=== PATIENT | male | born 1980 | race Caucasian/White ===

== ENCOUNTER 2017-12-09 06:37 | Inpatient (IN) | payer OTHER ==
[~2017-12-09] VITALS: Ht 190.5 cm; Wt 109.3 kg
[2017-12-09] VITALS (16 sets, daily range): BP systolic 102–162; BP diastolic 56–97
[2017-12-09] MEDS ORDERED: ketorolac trometh inj. 60 MG/2 ML VIAL IM ONE (06:45)
[2017-12-09] MEDS ORDERED: orphenadrine citrate 60mg/2ml inj. IM ONE (06:45)
[2017-12-09] MEDS ORDERED: acetaminophen 325mg tablet PO ONE (06:45)
[2017-12-09] MEDS ORDERED: HYDROcodone/acetaminophen 5mg/325mg tablet PO ONE (06:45)
[2017-12-09] MEDS ORDERED: LIDOcaine 5% patch TP ONE (06:45)
[2017-12-09] MEDS ORDERED: morphine 4 MG/ML inj SYRINge IV ONE ×2 (06:55→07:40)
[2017-12-09] MEDS ORDERED: normal saline 1000ml 1,000 ML IV ONE ×2 (06:55→12:25)
[2017-12-09] MEDS ORDERED: NO HOME MEDS (07:24)
[2017-12-09] MEDS ORDERED: iohexol 350MG/ML 100ml bottle IV ONE (07:27)
[2017-12-09 07:36] LABS: BASOPHILS % (AUTO) 0.3 % (0-1); EOSINOPHILS # (AUTO) 0.3 X10'3 (0-0.9); HEMATOCRIT 41.1 % (42.0-52.0); HEMOGLOBIN 14.3 g/dl (14.0-17.9); LYMPHOCYTES # (AUTO) 1.7 X10'3 (1.1-4.8); LYMPHOCYTES % (AUTO) 17.4 % (21-51); MEAN CORPUSCULAR HGB CONC 34.8 % (33.0-36.5); MEAN CORPUSCULAR VOLUME 94.9 FL (78-98); MEAN PLATELET VOLUME 6.9 FL (7.4-10.4); MONOCYTES # (AUTO) 0.5 X10'3 (0-0.9); MONOCYTES % (AUTO) 5.4 % (2-12); NEUTROPHILS # (AUTO) 7.2 X10'3 (1.8-7.7); NEUTROPHILS % (AUTO) 73.9 % (42-75); PLATELET COUNT 339 X10'3 (140-440); RED BLOOD COUNT 4.33 X10'6 (4.70-6.10); RED CELL DISTRIBUTION WIDTH 12.7 % (11.5-14.5); WHITE BLOOD COUNT 9.7 X10'3 (4.5-11.0)
[2017-12-09] MEDS ORDERED: ondansetron/PF 4mg/2ml inj IV ONE (07:40)
[2017-12-09 07:47] LABS: PARTIAL THROMBOPLASTIN TIME 22 SECONDS (22-32); PROTHROMBIN TIME 9.9 SECONDS (9.0-12.0)
[2017-12-09 07:49] LABS: ALANINE AMINOTRANSFERASE 182 U/L (12-78); ALBUMIN 3.7 G/DL (3.4-5.0); ALKALINE PHOSPHATASE 54 IU/L (46-116); ANION GAP 13 (8-16); ASPARTATE AMINO TRANSFERASE 159 U/L (10-37); BILIRUBIN,TOTAL 0.3 MG/DL (0.1-1.0); BLOOD UREA NITROGEN 11 MG/DL (7-18); BUN/CREATININE RATIO 10.3 (5.4-32.0); CALCIUM 8.3 MG/DL (8.5-10.1); CHLORIDE 107 MMOL/L (99-107); CREATININE 1.07 MG/DL (0.60-1.10); GLUCOSE 165 MG/DL (70-104); POTASSIUM 3.7 MMOL/L (3.5-5.1); SODIUM 144 MMOL/L (135-145); TOTAL CARBON DIOXIDE 24.4 MMOL/L (24-32); TOTAL PROTEIN 7.4 G/DL (6.4-8.2); eGFR 78 ML/MIN
[2017-12-09] MEDS: folic acid inj. 2 MG, thiamine inj. 100 MG, MVI, adult No.4 with vit. K 10 ML in dextro... IV SCH ×8 (08:00→14:15)
[2017-12-09] MEDS ORDERED: HYDROmorphone 1 mg/ml syringe IV ONE ×5 (08:15→12:20)
[2017-12-09] MEDS ORDERED: LIDOcaine 1%/PF 5ML 10 MG/ML VIAL ONE (09:52)
[2017-12-09 11:53] LABS: BF WBC COUNT 35000 /CU MM (0-1000); BFAPPEAR TURBID; BFCOLOR BROWN; BFVOLUME 13 ML
[2017-12-09 11:54] LABS: BF RBC COUNT 246000 /CU MM; LYMPHOCYTES,BODY FLUID 0 %; MONOCYTES,BODY FLUID 5 %; NEUTROPHILS,BODY FLUID 95 %
[2017-12-09] MEDS ORDERED: diatrozoate meglu/diatrozoate sod (37% iodine) 120ML oral solution ONE (11:56)
[2017-12-09] MEDS ORDERED: normal saline 1000ml 1,000 ML IV SCH (11:57)
[2017-12-09] MEDS ORDERED: HYDROmorphone 1 mg/ml syringe IV PRN ×2 (12:00)
[2017-12-09] MEDS ORDERED: magnesium 4gm in 100ml NS 100 ML IV PRN ×2 (12:00→13:00)
[2017-12-09] MEDS ORDERED: haloperidol lactate 5mg/ml inj IM PRN ×2 (12:00→13:00)
[2017-12-09] MEDS ORDERED: dextrose 50%-water 50ml dispensing syringe IV PRN ×2 (12:00→13:00)
[2017-12-09] MEDS ORDERED: acetaminophen 650mg rectal suppository RC PRN (12:00)
[2017-12-09] MEDS ORDERED: potassium Cl 40MEQ/NS 500ml 500 ML IV PRN ×2 (12:00)
[2017-12-09] MEDS ORDERED: potassium Cl 20 mEq SR tablet PO PRN ×3 (12:00→13:00)
[2017-12-09] MEDS ORDERED: magnesium 1gm/100ml D5W IVPB 100 ML IV PRN ×2 (12:00→13:00)
[2017-12-09] MEDS ORDERED: ondansetron/PF 4mg/2ml inj IV PRN ×3 (12:00→17:35)
[2017-12-09] MEDS ORDERED: morphine 4 MG/ML inj SYRINge IV PRN ×4 (12:00→13:00)
[2017-12-09] MEDS ORDERED: LORazepam 2 mg/ml vial IV PRN ×2 (12:00→13:00)
[2017-12-09] MEDS ORDERED: bisacodyl 10mg suppository rectal RC PRN (12:00)
[2017-12-09] MEDS: normal saline 1000ml 1,000 ML IV SCH ×3 (12:59→23:55)
[2017-12-09] MEDS ORDERED: haloperidol 5mg tablet PO PRN (13:00)
[2017-12-09] MEDS ORDERED: magnesium Cl slow-release 64mg tablet PO PRN (13:00)
[2017-12-09] MEDS: piperacillin/tazo 4.5gm/100ml 100 ML IV SCH ×2 (13:00→17:00)
[2017-12-09] MEDS ORDERED: thiamine 100mg/ml 2ml inj. IV ONE (13:00)
[2017-12-09] MEDS ORDERED: sodium phosphate inj. 30 MMOL in dextrose 5%-water 250 ML IV PRN (13:00)
[2017-12-09] MEDS ORDERED: sodium phosphate inj. 15 MMOL in dextrose 5%-water 150 ML IV PRN (13:00)
[2017-12-09] MEDS ORDERED: acetaminophen 325mg tablet PO PRN (13:00)
[2017-12-09] MEDS ORDERED: methylene blue (5mg/ml) 50mg/10ml ampul IV ONE (14:29)
[2017-12-09] MEDS ORDERED: ceFAZolin 1000mg inj ONE (14:29)
[2017-12-09 14:31] LABS: TOTAL PROTEIN 7.9 G/DL (6.4-8.2)
[2017-12-09] MEDS ORDERED: fentaNYL /PF 50mcg/ml 5ml ampule ONE ×2 (15:25)
[2017-12-09] MEDS ORDERED: MIDAZolam 1mg/ml 10ml vial ONE (15:25)
[2017-12-09] MEDS ORDERED: sevoflurane 250ml liquid IH ONE (15:28)
[2017-12-09] MEDS: CefTRIAXone 2gm/D5W 50ml 50 ML IV SCH (16:00)
[2017-12-09] MEDS ORDERED: gentamicin 40 MG/1 ML inj ONE (16:46)
[2017-12-09] MEDS ORDERED: clindamycin phosphate 150mg/ml inj. ONE (16:46)
[2017-12-09] MEDS ORDERED: ringers solution, lacted 1,000 ML IV SCH (17:33)
[2017-12-09] MEDS ORDERED: fentaNYL/PF 50MCG/1 ML 2ML syringe IV PRN ×2 (17:35)
[2017-12-09] MEDS: K, MAG and/or Phos replacement - Verify level? MC SCH (19:51)
[2017-12-09] MEDS ORDERED: propofol inj 20 ML IV ONE (19:55)
[2017-12-09] MEDS ORDERED: rocuronium 10mg/ml inj IV ONE ×5 (19:55→19:56)
[2017-12-09] MEDS ORDERED: propofol 1000mg/100ml bottle 100 ML IV PRN (20:12)
[2017-12-09] MEDS: pantoprazole 40 MG vial IV SCH (20:13)
[2017-12-09] MEDS ORDERED: albumin (Human) 5% 250 ML IV solution IV STA (23:37)
[2017-12-09] MEDS ORDERED: albumin (Human) 5% 250ml 500 ML IV ONE (23:46)
[2017-12-10] VITALS (24 sets, daily range): BP systolic 88–131; BP diastolic 52–71
[2017-12-10] MEDS: piperacillin/tazo 4.5gm/100ml 100 ML IV SCH ×4 (01:17→23:17)
[2017-12-10] MEDS: normal saline 1000ml 1,000 ML IV SCH ×5 (02:19→23:14)
[2017-12-10] MEDS: FENTANYL-0.9 % NACL/PF 100 ML IV PRN ×2 (03:15→09:04)
[2017-12-10 03:45] LABS: BASOPHILS % (AUTO) 0.1 % (0-1); EOSINOPHILS % (AUTO) 0.3 % (0-6); HEMATOCRIT 42.5 % (42.0-52.0); HEMOGLOBIN 14.7 g/dl (14.0-17.9); LYMPHOCYTES # (AUTO) 0.7 X10'3 (1.1-4.8); LYMPHOCYTES % (AUTO) 18.2 % (21-51); MEAN CORPUSCULAR HEMOGLOBIN 33.3 PG (27.0-31.0); MEAN CORPUSCULAR HGB CONC 34.5 % (33.0-36.5); MEAN CORPUSCULAR VOLUME 96.6 FL (78-98); MEAN PLATELET VOLUME 7.7 FL (7.4-10.4); MONOCYTES # (AUTO) 0.5 X10'3 (0-0.9); MONOCYTES % (AUTO) 14.8 % (2-12); NEUTROPHILS # (AUTO) 2.4 X10'3 (1.8-7.7); NEUTROPHILS % (AUTO) 66.6 % (42-75); PLATELET COUNT 274 X10'3 (140-440); RED CELL DISTRIBUTION WIDTH 13.1 % (11.5-14.5); WHITE BLOOD COUNT 3.6 X10'3 (4.5-11.0)
[2017-12-10 03:57] LABS: INR 1.1 INR; PARTIAL THROMBOPLASTIN TIME 24 SECONDS (22-32); PROTHROMBIN TIME 10.9 SECONDS (9.0-12.0)
[2017-12-10 04:02] LABS: ANION GAP 11 (8-16); BILIRUBIN,TOTAL 1.1 MG/DL (0.1-1.0); BLOOD UREA NITROGEN 15 MG/DL (7-18); BUN/CREATININE RATIO 10.7 (5.4-32.0); CHLORIDE 108 MMOL/L (99-107); GLUCOSE 169 MG/DL (70-104); MAGNESIUM 1.4 MG/DL (1.5-2.4); PHOSPHORUS 2.3 MG/DL (2.3-4.5); POTASSIUM 4.5 MMOL/L (3.5-5.1); SODIUM 142 MMOL/L (135-145); TOTAL CARBON DIOXIDE 23.3 MMOL/L (24-32); TOTAL PROTEIN 6.1 G/DL (6.4-8.2); eGFR 57 ML/MIN
[2017-12-10 04:03] LABS: ALANINE AMINOTRANSFERASE 149 U/L (12-78); ALKALINE PHOSPHATASE 26 IU/L (46-116); AMYLASE 20 U/L (25-115); ASPARTATE AMINO TRANSFERASE 135 U/L (10-37)
[2017-12-10] MEDS ORDERED: albumin (Human) 5% 250 ML IV solution IV ONE (04:20)
[2017-12-10 05:31] LABS: ABG BASE EXCESS -5.7 mmol/L (-2.0-3.0); ABG HCO3 20.1 mmol/L (22.0-26.0); ABG OXYGEN SATURATION 97.3 % (95-98); ABG PH (T) 7.302 (7.350-7.450); ABG PO2 (T) 93.9 mmHg (83-108); FCOHb 0.5 % (0.5-1.5); FMetHb 0.3 % (0.3-1.12); FO2Hb 96.5 % (94-100); MINUTE VOLUME 10 L/min; PATIENT TEMPERATURE 37.7; PEEP 5 cm H2O; RESPIRATORY RATE 14 b/min; RESPIRATORY RATE (OBSERVED) 14 b/min; TIDAL VOLUME 700 mL; TOTAL HEMOGLOBIN 14.8 G/dl (14.0-18.0)
[2017-12-10] MEDS: CefTRIAXone 2gm/D5W 50ml 50 ML IV SCH (07:32)
[2017-12-10] MEDS: pantoprazole 40 MG vial IV SCH (07:32)
[2017-12-10] MEDS: enoxaparin 40mg/0.4ml syringe SUBCUT SCH (07:33)
[2017-12-10] MEDS: K, MAG and/or Phos replacement - Verify level? MC SCH (07:35)
[2017-12-10] MEDS: K and/or MAG REPLACEMENT MC SCH (07:35)
[2017-12-10] MEDS ORDERED: CefTRIAXone/D5W-Rocephin 1gm 50 ML IV SCH (08:00)
[2017-12-10] MEDS: folic acid inj. 2 MG, thiamine inj. 100 MG, MVI, adult No.4 with vit. K 10 ML in dextro... IV SCH ×4 (10:36)
[2017-12-10] MEDS: HYDROmorphone/NS 1 mg/ml CADD 50 ML IV SCH ×7 (12:50→23:00)
[2017-12-10] MEDS: lactobacillus rhamnosus 10,000 MMU CELLS/CAPSULE PO SCH (20:20)
[2017-12-11] VITALS (23 sets, daily range): BP systolic 92–143; BP diastolic 61–77
[2017-12-11] MEDS: HYDROmorphone/NS 1 mg/ml CADD 50 ML IV SCH ×12 (01:00→23:00)
[2017-12-11 04:25] LABS: BASOPHILS % (AUTO) 0.2 % (0-1); EOSINOPHILS % (AUTO) 0.1 % (0-6); HEMATOCRIT 39.4 % (42.0-52.0); HEMOGLOBIN 13.1 g/dl (14.0-17.9); LYMPHOCYTES # (AUTO) 0.9 X10'3 (1.1-4.8); LYMPHOCYTES % (AUTO) 11.4 % (21-51); MEAN CORPUSCULAR HEMOGLOBIN 32.5 PG (27.0-31.0); MEAN CORPUSCULAR HGB CONC 33.3 % (33.0-36.5); MEAN CORPUSCULAR VOLUME 97.5 FL (78-98); MEAN PLATELET VOLUME 7.9 FL (7.4-10.4); MONOCYTES # (AUTO) 0.7 X10'3 (0-0.9); MONOCYTES % (AUTO) 9.5 % (2-12); NEUTROPHILS # (AUTO) 6.3 X10'3 (1.8-7.7); NEUTROPHILS % (AUTO) 78.8 % (42-75); PLATELET COUNT 228 X10'3 (140-440); RED BLOOD COUNT 4.04 X10'6 (4.70-6.10); RED CELL DISTRIBUTION WIDTH 12.6 % (11.5-14.5); WHITE BLOOD COUNT 7.9 X10'3 (4.5-11.0)
[2017-12-11 04:26] LABS: PARTIAL THROMBOPLASTIN TIME 33 SECONDS (22-32)
[2017-12-11 04:28] LABS: ALANINE AMINOTRANSFERASE 108 U/L (12-78); ALBUMIN 2.6 G/DL (3.4-5.0); ALBUMIN/GLOBULIN RATIO 0.7 (1.1-1.5); ALKALINE PHOSPHATASE 46 IU/L (46-116); AMYLASE 11 U/L (25-115); ANION GAP 6 (8-16); ASPARTATE AMINO TRANSFERASE 73 U/L (10-37); BILIRUBIN,TOTAL 0.7 MG/DL (0.1-1.0); BLOOD UREA NITROGEN 14 MG/DL (7-18); BUN/CREATININE RATIO 13.7 (5.4-32.0); CALCIUM 8.3 MG/DL (8.5-10.1); CHLORIDE 105 MMOL/L (99-107); CREATININE 1.02 MG/DL (0.60-1.10); GLUCOSE 112 MG/DL (70-104); MAGNESIUM 1.7 MG/DL (1.5-2.4); PHOSPHORUS 2.3 MG/DL (2.3-4.5); POTASSIUM 4.1 MMOL/L (3.5-5.1); SODIUM 140 MMOL/L (135-145); TOTAL CARBON DIOXIDE 29.2 MMOL/L (24-32); TOTAL PROTEIN 6.4 G/DL (6.4-8.2); eGFR 83 ML/MIN
[2017-12-11 06:14] LABS: PLATELET ESTIMATE NORMAL; TOTAL CELLS COUNTED 100
[2017-12-11] MEDS: lactobacillus rhamnosus 10,000 MMU CELLS/CAPSULE PO SCH (07:01)
[2017-12-11] MEDS: K and/or MAG REPLACEMENT MC SCH (07:10)
[2017-12-11] MEDS: K, MAG and/or Phos replacement - Verify level? MC SCH (07:11)
[2017-12-11] MEDS: pantoprazole 40 MG vial IV SCH (07:27)
[2017-12-11] MEDS: CefTRIAXone 2gm/D5W 50ml 50 ML IV SCH (07:27)
[2017-12-11] MEDS: enoxaparin 40mg/0.4ml syringe SUBCUT SCH (07:27)
[2017-12-11] MEDS: piperacillin/tazo 4.5gm/100ml 100 ML IV SCH ×3 (08:16→23:51)
[2017-12-11] MEDS: folic acid inj. 2 MG, thiamine inj. 100 MG, MVI, adult No.4 with vit. K 10 ML in dextro... IV SCH ×4 (08:16)
[2017-12-11] MEDS: normal saline 1000ml 1,000 ML IV SCH (16:41)
[2017-12-11] MEDS ORDERED: vancomycin/NS 1 GM ADD-VANTAGE 250 ML IV ONE (17:55)
[2017-12-12] VITALS (24 sets, daily range): BP systolic 110–154; BP diastolic 69–89
[2017-12-12] MEDS: HYDROmorphone/NS 1 mg/ml CADD 50 ML IV SCH ×12 (01:00→23:00)
[2017-12-12 06:05] LABS: ABG BASE EXCESS -7.2 mmol/L (-2.0-3.0); ABG HCO3 20.4 mmol/L (22.0-26.0); ABG OXYGEN SATURATION 96.5 % (95-98); ABG PH (T) 7.239 (7.350-7.450); ABG PO2 (T) 89.5 mmHg (83-108); FCOHb 0.8 % (0.5-1.5); FMetHb 0.3 % (0.3-1.12); FO2Hb 95.4 % (94-100); MINUTE VOLUME 10 L/min; PATIENT TEMPERATURE 37.3; PEEP 5 cm H2O; RESPIRATORY RATE 12 b/min; RESPIRATORY RATE (OBSERVED) 17 b/min; TIDAL VOLUME 700 mL
[2017-12-12 06:15] LABS: BASOPHILS % (AUTO) 0.1 % (0-1); EOSINOPHILS % (AUTO) 0.4 % (0-6); HEMATOCRIT 35.7 % (42.0-52.0); HEMOGLOBIN 12.7 g/dl (14.0-17.9); LYMPHOCYTES # (AUTO) 0.7 X10'3 (1.1-4.8); LYMPHOCYTES % (AUTO) 6.6 % (21-51); MEAN CORPUSCULAR HEMOGLOBIN 33.8 PG (27.0-31.0); MEAN CORPUSCULAR HGB CONC 35.6 % (33.0-36.5); MEAN PLATELET VOLUME 7.8 FL (7.4-10.4); MONOCYTES # (AUTO) 1.1 X10'3 (0-0.9); MONOCYTES % (AUTO) 9.9 % (2-12); NEUTROPHILS # (AUTO) 9.5 X10'3 (1.8-7.7); PLATELET COUNT 210 X10'3 (140-440); RED BLOOD COUNT 3.76 X10'6 (4.70-6.10); RED CELL DISTRIBUTION WIDTH 12.2 % (11.5-14.5); WHITE BLOOD COUNT 11.3 X10'3 (4.5-11.0)
[2017-12-12 06:22] LABS: INR 0.9 INR; PARTIAL THROMBOPLASTIN TIME 33 SECONDS (22-32); PROTHROMBIN TIME 9.1 SECONDS (9.0-12.0)
[2017-12-12 06:31] LABS: ALANINE AMINOTRANSFERASE 83 U/L (12-78); ALBUMIN/GLOBULIN RATIO 0.5 (1.1-1.5); ALKALINE PHOSPHATASE 56 IU/L (46-116); AMYLASE 12 U/L (25-115); ANION GAP 5 (8-16); ASPARTATE AMINO TRANSFERASE 59 U/L (10-37); BILIRUBIN,TOTAL 0.5 MG/DL (0.1-1.0); BLOOD UREA NITROGEN 9 MG/DL (7-18); BUN/CREATININE RATIO 10.8 (5.4-32.0); CALCIUM 8.2 MG/DL (8.5-10.1); CHLORIDE 101 MMOL/L (99-107); CREATININE 0.83 MG/DL (0.60-1.10); GLUCOSE 119 MG/DL (70-104); PHOSPHORUS 1.6 MG/DL (2.3-4.5); POTASSIUM 3.7 MMOL/L (3.5-5.1); PREALBUMIN 9.8 MG/DL (19-36); SODIUM 138 MMOL/L (135-145); TOTAL CARBON DIOXIDE 31.9 MMOL/L (24-32); TOTAL PROTEIN 5.8 G/DL (6.4-8.2); eGFR > 90 ML/MIN
[2017-12-12] MEDS: normal saline 1000ml 1,000 ML IV SCH (07:07)
[2017-12-12 07:08] LABS: TOTAL CELLS COUNTED 100
[2017-12-12] MEDS: K, MAG and/or Phos replacement - Verify level? MC SCH (07:08)
[2017-12-12] MEDS: K and/or MAG REPLACEMENT MC SCH (07:08)
[2017-12-12 07:09] LABS: PLATELET ESTIMATE NORMAL
[2017-12-12] MEDS: piperacillin/tazo 4.5gm/100ml 100 ML IV SCH ×2 (07:18→16:58)
[2017-12-12] MEDS: pantoprazole 40 MG vial IV SCH (07:26)
[2017-12-12] MEDS: enoxaparin 40mg/0.4ml syringe SUBCUT SCH (07:27)
[2017-12-12] MEDS: folic acid inj. 2 MG, thiamine inj. 100 MG, MVI, adult No.4 with vit. K 10 ML in dextro... IV SCH ×4 (07:45)
[2017-12-12] MEDS: CefTRIAXone 2gm/D5W 50ml 50 ML IV SCH (08:11)
[2017-12-12] MEDS ORDERED: ipratropium/albuterol 3ml nebule ONE (08:47)
[2017-12-12] MEDS ORDERED: ipratropium/albuterol 3ml nebule NEB ONE (08:55)
[2017-12-12] MEDS ORDERED: sodium phosphate inj. 30 MMOL in dextrose 5%-water 250 ML IV PRN (10:55)
[2017-12-12] MEDS ORDERED: sodium phosphate inj. 15 MMOL in dextrose 5%-water 150 ML IV PRN (10:55)
[2017-12-12] MEDS: metoclopramide 5 mg/ml inj IV SCH ×2 (13:42→19:44)
[2017-12-12] MEDS ORDERED: furosemide 20 MG/2 ML vial IV ONE (13:50)
[2017-12-12] MEDS ORDERED: iohexol 300mg/ml 100ml inj. ONE (15:10)
[2017-12-12] MEDS ORDERED: VANCOMYCIN LEVEL IV ONE (16:30)
[2017-12-12] MEDS ORDERED: ipratropium/albuterol 3ml nebule NEB PRN (16:40)
[2017-12-12] MEDS: furosemide 20 MG/2 ML vial IV SCH (19:44)
[2017-12-13] VITALS (22 sets, daily range): BP systolic 108–139; BP diastolic 72–89
[2017-12-13] MEDS: piperacillin/tazo 4.5gm/100ml 100 ML IV SCH ×3 (00:12→16:43)
[2017-12-13] MEDS: HYDROmorphone/NS 1 mg/ml CADD 50 ML IV SCH ×12 (00:16→21:00)
[2017-12-13] MEDS: metoclopramide 5 mg/ml inj IV SCH ×4 (02:20→20:42)
[2017-12-13 06:14] LABS: ALANINE AMINOTRANSFERASE 91 U/L (12-78); ALBUMIN/GLOBULIN RATIO 0.5 (1.1-1.5); ALKALINE PHOSPHATASE 81 IU/L (46-116); ANION GAP 3 (8-16); ASPARTATE AMINO TRANSFERASE 71 U/L (10-37); BASOPHILS % (AUTO) 0.2 % (0-1); BILIRUBIN,TOTAL 0.7 MG/DL (0.1-1.0); BLOOD UREA NITROGEN 11 MG/DL (7-18); BUN/CREATININE RATIO 12.1 (5.4-32.0); CALCIUM 8.3 MG/DL (8.5-10.1); CHLORIDE 100 MMOL/L (99-107); CREATININE 0.91 MG/DL (0.60-1.10); EOSINOPHILS # (AUTO) 0.2 X10'3 (0-0.9); EOSINOPHILS % (AUTO) 1.3 % (0-6); GLUCOSE 106 MG/DL (70-104); HEMATOCRIT 36.5 % (42.0-52.0); HEMOGLOBIN 12.8 g/dl (14.0-17.9); LYMPHOCYTES % (AUTO) 6.9 % (21-51); MAGNESIUM 1.9 MG/DL (1.5-2.4); MEAN CORPUSCULAR HEMOGLOBIN 33.3 PG (27.0-31.0); MEAN CORPUSCULAR HGB CONC 35.1 % (33.0-36.5); MEAN CORPUSCULAR VOLUME 94.7 FL (78-98); MEAN PLATELET VOLUME 7.4 FL (7.4-10.4); MONOCYTES # (AUTO) 1.9 X10'3 (0-0.9); MONOCYTES % (AUTO) 12.7 % (2-12); NEUTROPHILS # (AUTO) 11.9 X10'3 (1.8-7.7); NEUTROPHILS % (AUTO) 78.9 % (42-75); PLATELET COUNT 241 X10'3 (140-440); RED BLOOD COUNT 3.85 X10'6 (4.70-6.10); RED CELL DISTRIBUTION WIDTH 12.9 % (11.5-14.5); SODIUM 136 MMOL/L (135-145); TOTAL CARBON DIOXIDE 33.1 MMOL/L (24-32); TOTAL PROTEIN 6.2 G/DL (6.4-8.2); eGFR > 90 ML/MIN
[2017-12-13 06:21] LABS: INR 0.9 INR; PARTIAL THROMBOPLASTIN TIME 29 SECONDS (22-32); PROTHROMBIN TIME 9.3 SECONDS (9.0-12.0)
[2017-12-13 06:53] LABS: PLATELET ESTIMATE NORMAL; TOTAL CELLS COUNTED 100
[2017-12-13 07:15] LABS: POTASSIUM 2.9 MMOL/L (3.5-5.1)
[2017-12-13] MEDS: K, MAG and/or Phos replacement - Verify level? MC SCH (08:00)
[2017-12-13] MEDS: furosemide 20 MG/2 ML vial IV SCH ×2 (08:13→20:42)
[2017-12-13] MEDS: enoxaparin 40mg/0.4ml syringe SUBCUT SCH (08:13)
[2017-12-13] MEDS: pantoprazole 40 MG vial IV SCH (08:13)
[2017-12-13] MEDS: folic acid inj. 2 MG, thiamine inj. 100 MG, MVI, adult No.4 with vit. K 10 ML in dextro... IV SCH ×4 (08:14)
[2017-12-13] MEDS: potassium Cl 20 mEq SR tablet PO PRN ×3 (08:14→17:33)
[2017-12-13] MEDS: Neutra Phos packet PO PRN ×3 (08:14→17:33)
[2017-12-13] MEDS: vancomycin inj 1,250 MG in normal saline 250ml IV soln 250 ML IV SCH ×3 (10:03→20:42)
[2017-12-13] MEDS: lactobacillus rhamnosus 10,000 MMU CELLS/CAPSULE PO SCH (20:42)
[2017-12-13] MEDS: potassium Cl oral solution 20 MEQ/15 ML PO PRN (21:01)
[2017-12-14] VITALS (24 sets, daily range): BP systolic 113–151; BP diastolic 75–94
[2017-12-14] MEDS: piperacillin/tazo 4.5gm/100ml 100 ML IV SCH ×3 (00:22→15:06)
[2017-12-14] MEDS: normal saline 1000ml 1,000 ML IV SCH (00:29)
[2017-12-14] MEDS: HYDROmorphone/NS 1 mg/ml CADD 50 ML IV SCH ×12 (01:00→23:45)
[2017-12-14] MEDS ORDERED: VANCOMYCIN LEVEL IV ONE (01:30)
[2017-12-14] MEDS: metoclopramide 5 mg/ml inj IV SCH ×4 (01:30→20:02)
[2017-12-14] MEDS: potassium Cl oral solution 20 MEQ/15 ML PO PRN (01:30)
[2017-12-14] MEDS: vancomycin inj 1,250 MG in normal saline 250ml IV soln 250 ML IV SCH ×4 (01:34→20:02)
[2017-12-14 01:50] LABS: INR 0.9 INR; PARTIAL THROMBOPLASTIN TIME 27 SECONDS (22-32); PROTHROMBIN TIME 9.5 SECONDS (9.0-12.0)
[2017-12-14 01:54] LABS: ALANINE AMINOTRANSFERASE 111 U/L (12-78); ALBUMIN/GLOBULIN RATIO 0.4 (1.1-1.5); ALKALINE PHOSPHATASE 94 IU/L (46-116); ANION GAP 7 (8-16); ASPARTATE AMINO TRANSFERASE 93 U/L (10-37); BILIRUBIN,TOTAL 0.9 MG/DL (0.1-1.0); BLOOD UREA NITROGEN 13 MG/DL (7-18); BUN/CREATININE RATIO 13.7 (5.4-32.0); CALCIUM 8.5 MG/DL (8.5-10.1); CHLORIDE 99 MMOL/L (99-107); CREATININE 0.95 MG/DL (0.60-1.10); GLUCOSE 129 MG/DL (70-104); POTASSIUM 3.3 MMOL/L (3.5-5.1); SODIUM 137 MMOL/L (135-145); TOTAL CARBON DIOXIDE 30.8 MMOL/L (24-32); TOTAL PROTEIN 6.7 G/DL (6.4-8.2); eGFR 90 ML/MIN
[2017-12-14 01:55] LABS: MAGNESIUM 1.8 MG/DL (1.5-2.4); PHOSPHORUS 2.7 MG/DL (2.3-4.5); VANCOMYCIN,TROUGH 17.3 UG/ML (6.0-14.0)
[2017-12-14 02:14] LABS: BASOPHILS % (AUTO) 0 % (0-1); EOSINOPHILS # (AUTO) 0.2 X10'3 (0-0.9); EOSINOPHILS % (AUTO) 1.4 % (0-6); HEMATOCRIT 40.4 % (42.0-52.0); HEMOGLOBIN 13.9 g/dl (14.0-17.9); LYMPHOCYTES % (AUTO) 7.6 % (21-51); MEAN CORPUSCULAR HEMOGLOBIN 32.7 PG (27.0-31.0); MEAN CORPUSCULAR HGB CONC 34.5 % (33.0-36.5); MEAN CORPUSCULAR VOLUME 94.8 FL (78-98); MEAN PLATELET VOLUME 7.4 FL (7.4-10.4); MONOCYTES % (AUTO) 14.9 % (2-12); NEUTROPHILS # (AUTO) 10.2 X10'3 (1.8-7.7); NEUTROPHILS % (AUTO) 76.1 % (42-75); PLATELET COUNT 290 X10'3 (140-440); RED BLOOD COUNT 4.26 X10'6 (4.70-6.10); RED CELL DISTRIBUTION WIDTH 13.2 % (11.5-14.5); WHITE BLOOD COUNT 13.3 X10'3 (4.5-11.0)
[2017-12-14] MEDS: folic acid inj. 2 MG, thiamine inj. 100 MG, MVI, adult No.4 with vit. K 10 ML in dextro... IV SCH ×4 (07:51)
[2017-12-14] MEDS: lactobacillus rhamnosus 10,000 MMU CELLS/CAPSULE PO SCH ×2 (07:51→20:02)
[2017-12-14] MEDS: furosemide 40mg/4ml inj IV SCH ×2 (07:51→20:02)
[2017-12-14] MEDS: enoxaparin 40mg/0.4ml syringe SUBCUT SCH (07:52)
[2017-12-14] MEDS: pantoprazole 40 MG vial IV SCH (07:52)
[2017-12-14] MEDS: K, MAG and/or Phos replacement - Verify level? MC SCH (07:53)
[2017-12-14] MEDS ORDERED: diatrozoate meglu/diatrozoate sod (37% iodine) 120ML oral solution ONE (08:43)
[2017-12-15] VITALS (24 sets, daily range): BP systolic 116–147; BP diastolic 73–96
[2017-12-15] MEDS: piperacillin/tazo 4.5gm/100ml 100 ML IV SCH ×2 (00:46→08:04)
[2017-12-15] MEDS: HYDROmorphone/NS 1 mg/ml CADD 50 ML IV SCH ×12 (01:00→23:00)
[2017-12-15] MEDS: vancomycin inj 1,250 MG in normal saline 250ml IV soln 250 ML IV SCH ×4 (02:00→20:47)
[2017-12-15] MEDS: metoclopramide 5 mg/ml inj IV SCH ×2 (02:00→08:02)
[2017-12-15 05:31] LABS: BASOPHILS % (AUTO) 0 % (0-1); EOSINOPHILS # (AUTO) 0.5 X10'3 (0-0.9); EOSINOPHILS % (AUTO) 2.6 % (0-6); HEMATOCRIT 37.1 % (42.0-52.0); LYMPHOCYTES # (AUTO) 1.5 X10'3 (1.1-4.8); LYMPHOCYTES % (AUTO) 7.6 % (21-51); MEAN CORPUSCULAR HEMOGLOBIN 32.8 PG (27.0-31.0); MEAN CORPUSCULAR HGB CONC 35.1 % (33.0-36.5); MEAN CORPUSCULAR VOLUME 93.3 FL (78-98); MEAN PLATELET VOLUME 7.5 FL (7.4-10.4); MONOCYTES # (AUTO) 2.6 X10'3 (0-0.9); MONOCYTES % (AUTO) 13.2 % (2-12); NEUTROPHILS % (AUTO) 76.6 % (42-75); PLATELET COUNT 359 X10'3 (140-440); RED BLOOD COUNT 3.98 X10'6 (4.70-6.10); RED CELL DISTRIBUTION WIDTH 13.3 % (11.5-14.5); WHITE BLOOD COUNT 19.6 X10'3 (4.5-11.0)
[2017-12-15 05:47] LABS: PARTIAL THROMBOPLASTIN TIME 27 SECONDS (22-32)
[2017-12-15 06:04] LABS: ALANINE AMINOTRANSFERASE 84 U/L (12-78); ALBUMIN 1.9 G/DL (3.4-5.0); ALBUMIN/GLOBULIN RATIO 0.4 (1.1-1.5); ALKALINE PHOSPHATASE 85 IU/L (46-116); ANION GAP 9 (8-16); ASPARTATE AMINO TRANSFERASE 34 U/L (10-37); BILIRUBIN,TOTAL 0.6 MG/DL (0.1-1.0); BLOOD UREA NITROGEN 13 MG/DL (7-18); BUN/CREATININE RATIO 14.1 (5.4-32.0); CALCIUM 8.4 MG/DL (8.5-10.1); CHLORIDE 96 MMOL/L (99-107); CREATININE 0.92 MG/DL (0.60-1.10); GLUCOSE 96 MG/DL (70-104); MAGNESIUM 1.8 MG/DL (1.5-2.4); PHOSPHORUS 4.6 MG/DL (2.3-4.5); PREALBUMIN 6.8 MG/DL (19-36); SODIUM 135 MMOL/L (135-145); TOTAL CARBON DIOXIDE 30.1 MMOL/L (24-32); TOTAL PROTEIN 6.6 G/DL (6.4-8.2); eGFR > 90 ML/MIN
[2017-12-15 06:38] LABS: BANDS% (MANUAL) 5 % (0-10); EOSINOPHILS % (MANUAL) 3 % (0-6); LYMPHOCYTES % (MANUAL) 7 % (21-51); MONOCYTES % (MANUAL) 12 % (2-12); NEUTROPHILS % (MANUAL) 73 % (42-75); TOTAL CELLS COUNTED 100
[2017-12-15 06:39] LABS: PLATELET ESTIMATE NORMAL
[2017-12-15] MEDS: K, MAG and/or Phos replacement - Verify level? MC SCH (08:00)
[2017-12-15] MEDS ORDERED: enoxaparin 40mg/0.4ml syringe SUBCUT SCH (08:00)
[2017-12-15] MEDS: pantoprazole 40 MG vial IV SCH (08:01)
[2017-12-15] MEDS: furosemide 40mg/4ml inj IV SCH ×2 (08:02→20:47)
[2017-12-15] MEDS: lactobacillus rhamnosus 10,000 MMU CELLS/CAPSULE PO SCH ×2 (08:03→20:46)
[2017-12-15] MEDS: enoxaparin 40mg/0.4ml syringe SUBCUT SCH (08:03)
[2017-12-15] MEDS: folic acid inj. 2 MG, thiamine inj. 100 MG, MVI, adult No.4 with vit. K 10 ML in dextro... IV SCH ×4 (08:04)
[2017-12-15] MEDS: potassium Cl oral solution 20 MEQ/15 ML PO PRN ×3 (08:58→20:46)
[2017-12-15] MEDS: piperacillin/tazo 3.375gm/50ml 50 ML IV SCH (16:57)
[2017-12-15] MEDS: normal saline 1000ml 1,000 ML IV SCH (23:28)
[2017-12-16] VITALS (24 sets, daily range): BP systolic 118–151; BP diastolic 63–95
[2017-12-16] MEDS: CADD PCA waste documentation MC SCH
[2017-12-16] MEDS: piperacillin/tazo 3.375gm/50ml 50 ML IV SCH ×4 (00:07→20:25)
[2017-12-16] MEDS: HYDROmorphone/NS 1 mg/ml CADD 50 ML IV SCH ×12 (01:00→23:00)
[2017-12-16] MEDS: potassium Cl oral solution 20 MEQ/15 ML PO PRN ×2 (02:07→08:12)
[2017-12-16] MEDS: vancomycin inj 1,250 MG in normal saline 250ml IV soln 250 ML IV SCH ×3 (02:07→14:14)
[2017-12-16 05:56] LABS: BASOPHILS % (AUTO) 0 % (0-1); EOSINOPHILS # (AUTO) 0.7 X10'3 (0-0.9); EOSINOPHILS % (AUTO) 3.2 % (0-6); HEMATOCRIT 36.5 % (42.0-52.0); HEMOGLOBIN 12.6 g/dl (14.0-17.9); LYMPHOCYTES # (AUTO) 1.5 X10'3 (1.1-4.8); LYMPHOCYTES % (AUTO) 6.9 % (21-51); MEAN CORPUSCULAR HEMOGLOBIN 32.5 PG (27.0-31.0); MEAN CORPUSCULAR HGB CONC 34.5 % (33.0-36.5); MEAN CORPUSCULAR VOLUME 94.1 FL (78-98); MEAN PLATELET VOLUME 7.5 FL (7.4-10.4); MONOCYTES # (AUTO) 2.2 X10'3 (0-0.9); MONOCYTES % (AUTO) 9.9 % (2-12); NEUTROPHILS # (AUTO) 17.4 X10'3 (1.8-7.7); PLATELET COUNT 411 X10'3 (140-440); RED BLOOD COUNT 3.88 X10'6 (4.70-6.10); RED CELL DISTRIBUTION WIDTH 13.2 % (11.5-14.5); WHITE BLOOD COUNT 21.7 X10'3 (4.5-11.0)
[2017-12-16 06:05] LABS: PARTIAL THROMBOPLASTIN TIME 27 SECONDS (22-32); PROTHROMBIN TIME 9.9 SECONDS (9.0-12.0)
[2017-12-16 06:11] LABS: ALANINE AMINOTRANSFERASE 67 U/L (12-78); ALBUMIN 1.8 G/DL (3.4-5.0); ALBUMIN/GLOBULIN RATIO 0.4 (1.1-1.5); ALKALINE PHOSPHATASE 93 IU/L (46-116); ANION GAP 6 (8-16); ASPARTATE AMINO TRANSFERASE 38 U/L (10-37); BILIRUBIN,TOTAL 0.6 MG/DL (0.1-1.0); BLOOD UREA NITROGEN 11 MG/DL (7-18); BUN/CREATININE RATIO 12.1 (5.4-32.0); CALCIUM 8.5 MG/DL (8.5-10.1); CHLORIDE 97 MMOL/L (99-107); CREATININE 0.91 MG/DL (0.60-1.10); GLUCOSE 101 MG/DL (70-104); MAGNESIUM 2.2 MG/DL (1.5-2.4); PHOSPHORUS 3.9 MG/DL (2.3-4.5); POTASSIUM 3.6 MMOL/L (3.5-5.1); SODIUM 136 MMOL/L (135-145); TOTAL PROTEIN 6.7 G/DL (6.4-8.2); eGFR > 90 ML/MIN
[2017-12-16] MEDS: K, MAG and/or Phos replacement - Verify level? MC SCH (07:56)
[2017-12-16] MEDS: furosemide 40mg/4ml inj IV SCH (08:00)
[2017-12-16] MEDS: folic acid inj. 2 MG, thiamine inj. 100 MG, MVI, adult No.4 with vit. K 10 ML in dextro... IV SCH ×4 (08:12)
[2017-12-16] MEDS: pantoprazole 40 MG vial IV SCH (08:12)
[2017-12-16] MEDS: enoxaparin 40mg/0.4ml syringe SUBCUT SCH (08:13)
[2017-12-16] MEDS: lactobacillus rhamnosus 10,000 MMU CELLS/CAPSULE PO SCH ×2 (08:13→20:26)
[2017-12-16 09:22] LABS: BANDS% (MANUAL) 2 % (0-10); LYMPHOCYTES % (MANUAL) 6 % (21-51); MONOCYTES % (MANUAL) 8 % (2-12); NEUTROPHILS % (MANUAL) 83 % (42-75); TOTAL CELLS COUNTED 100
[2017-12-16 09:23] LABS: NUCLEATED RED BLOOD CELLS 1 /100WBC (0-0); PLATELET ESTIMATE NORMAL; REACTIVE LYMPHOCYTES % 1 % (0-0)
[2017-12-16] MEDS: diatr meglu/diatrizoate 30ml oral sol.-(3 dose) bottle PO SCH ×3 (09:33→15:17)
[2017-12-16] MEDS ORDERED: iohexol 300mg/ml 100ml inj. ONE (15:33)
[2017-12-16] MEDS: fluconazole 100mg tablet PO SCH (20:26)
[2017-12-16] MEDS: linezolid 600mg tablet PO SCH (20:26)
[2017-12-17] VITALS (28 sets, daily range): BP systolic 99–153; BP diastolic 58–89
[2017-12-17] MEDS: HYDROmorphone/NS 1 mg/ml CADD 50 ML IV SCH ×13 (01:00→23:00)
[2017-12-17] MEDS: piperacillin/tazo 3.375gm/50ml 50 ML IV SCH ×4 (02:17→20:09)
[2017-12-17] MEDS ORDERED: bisacodyl 10mg suppository rectal RC PRN (04:54)
[2017-12-17 06:37] LABS: PARTIAL THROMBOPLASTIN TIME 27 SECONDS (22-32)
[2017-12-17] MEDS: pantoprazole 40 MG vial IV SCH (07:48)
[2017-12-17] MEDS: lactobacillus rhamnosus 10,000 MMU CELLS/CAPSULE PO SCH ×2 (07:49→20:08)
[2017-12-17] MEDS: enoxaparin 40mg/0.4ml syringe SUBCUT SCH (07:49)
[2017-12-17] MEDS: linezolid 600mg tablet PO SCH ×2 (07:49→20:09)
[2017-12-17] MEDS: K, MAG and/or Phos replacement - Verify level? MC SCH (08:00)
[2017-12-17] MEDS: folic acid inj. 2 MG, thiamine inj. 100 MG, MVI, adult No.4 with vit. K 10 ML in dextro... IV SCH ×4 (08:08)
[2017-12-17] MEDS: fluconazole 100mg tablet PO SCH (08:55)
[2017-12-17] MEDS ORDERED: LIDOcaine 1%/PF 5ML 10 MG/ML VIAL ONE ×2 (10:38→11:24)
[2017-12-17] MEDS ORDERED: tPA-cathflo 2 MG/2 ml IV flush ONE (11:20)
[2017-12-17] MEDS ORDERED: tPA-cathflo 2 MG/2 ml IV flush IVF ONE (11:35)
[2017-12-17 12:49] LABS: TOTAL PROTEIN,BODY FLUID 4.6 G/DL
[2017-12-17] MEDS: ketorolac trometh. 30mg/ml inj. IV SCH (20:10)
[2017-12-18] VITALS (24 sets, daily range): BP systolic 102–144; BP diastolic 63–107
[2017-12-18] MEDS: normal saline 1000ml 1,000 ML IV SCH (00:29)
[2017-12-18] MEDS: HYDROmorphone/NS 1 mg/ml CADD 50 ML IV SCH ×10 (01:00→23:00)
[2017-12-18] MEDS: piperacillin/tazo 3.375gm/50ml 50 ML IV SCH ×4 (01:28→19:12)
[2017-12-18] MEDS: ketorolac trometh. 30mg/ml inj. IV SCH ×3 (01:29→14:02)
[2017-12-18 05:59] LABS: BASOPHILS % (AUTO) 0 % (0-1); EOSINOPHILS # (AUTO) 0.8 X10'3 (0-0.9); EOSINOPHILS % (AUTO) 3.4 % (0-6); HEMATOCRIT 34.8 % (42.0-52.0); HEMOGLOBIN 12.1 g/dl (14.0-17.9); LYMPHOCYTES # (AUTO) 1.4 X10'3 (1.1-4.8); LYMPHOCYTES % (AUTO) 6.3 % (21-51); MEAN CORPUSCULAR HGB CONC 34.9 % (33.0-36.5); MEAN CORPUSCULAR VOLUME 94.4 FL (78-98); MEAN PLATELET VOLUME 7.5 FL (7.4-10.4); MONOCYTES # (AUTO) 1.8 X10'3 (0-0.9); MONOCYTES % (AUTO) 7.9 % (2-12); NEUTROPHILS # (AUTO) 18.4 X10'3 (1.8-7.7); NEUTROPHILS % (AUTO) 82.4 % (42-75); PLATELET COUNT 492 X10'3 (140-440); RED BLOOD COUNT 3.68 X10'6 (4.70-6.10); WHITE BLOOD COUNT 22.4 X10'3 (4.5-11.0)
[2017-12-18 06:09] LABS: PARTIAL THROMBOPLASTIN TIME 28 SECONDS (22-32); PROTHROMBIN TIME 10.6 SECONDS (9.0-12.0)
[2017-12-18 06:36] LABS: ALANINE AMINOTRANSFERASE 39 U/L (12-78); ALBUMIN 1.7 G/DL (3.4-5.0); ALBUMIN/GLOBULIN RATIO 0.4 (1.1-1.5); ALKALINE PHOSPHATASE 78 IU/L (46-116); ANION GAP 6 (8-16); ASPARTATE AMINO TRANSFERASE 30 U/L (10-37); BILIRUBIN,TOTAL 0.6 MG/DL (0.1-1.0); BLOOD UREA NITROGEN 10 MG/DL (7-18); BUN/CREATININE RATIO 9.6 (5.4-32.0); CALCIUM 8.4 MG/DL (8.5-10.1); CHLORIDE 99 MMOL/L (99-107); CREATININE 1.04 MG/DL (0.60-1.10); GLUCOSE 87 MG/DL (70-104); PHOSPHORUS 4.5 MG/DL (2.3-4.5); POTASSIUM 3.2 MMOL/L (3.5-5.1); SODIUM 135 MMOL/L (135-145); TOTAL CARBON DIOXIDE 30.4 MMOL/L (24-32); TOTAL PROTEIN 6.4 G/DL (6.4-8.2); eGFR 81 ML/MIN
[2017-12-18] MEDS: potassium Cl oral solution 20 MEQ/15 ML PO PRN ×3 (07:35→16:00)
[2017-12-18] MEDS: pantoprazole 40 MG vial IV SCH (07:35)
[2017-12-18] MEDS: lactobacillus rhamnosus 10,000 MMU CELLS/CAPSULE PO SCH ×2 (07:36→19:12)
[2017-12-18] MEDS: enoxaparin 40mg/0.4ml syringe SUBCUT SCH (07:37)
[2017-12-18] MEDS: folic acid inj. 2 MG, thiamine inj. 100 MG, MVI, adult No.4 with vit. K 10 ML in dextro... IV SCH ×4 (07:37)
[2017-12-18] MEDS: fluconazole 100mg tablet PO SCH (07:48)
[2017-12-18] MEDS: linezolid 600mg tablet PO SCH ×2 (07:48→19:12)
[2017-12-18] MEDS: K, MAG and/or Phos replacement - Verify level? MC SCH (08:00)
[2017-12-18] MEDS ORDERED: TPA CATHFLO ICATH ONE (12:30)
[2017-12-18] MEDS ORDERED: NORMAL SALINE ICATH ONE (12:30)
[2017-12-18] MEDS ORDERED: FLUSH 5 MG ICATH ONE (12:30)
[2017-12-18] MEDS: CADD PCA waste documentation MC SCH (17:39)
[2017-12-19] VITALS (19 sets, daily range): BP systolic 103–135; BP diastolic 66–83
[2017-12-19] MEDS: HYDROmorphone/NS 1 mg/ml CADD 50 ML IV SCH ×12 (01:00→23:00)
[2017-12-19] MEDS: piperacillin/tazo 3.375gm/50ml 50 ML IV SCH ×4 (01:01→20:06)
[2017-12-19] MEDS: diphenhydrAMINE 25mg capsule PO PRN ×2 (04:36→20:06)
[2017-12-19 05:23] LABS: PARTIAL THROMBOPLASTIN TIME 28 SECONDS (22-32); PROTHROMBIN TIME 10.5 SECONDS (9.0-12.0)
[2017-12-19 05:33] LABS: ALANINE AMINOTRANSFERASE 37 U/L (12-78); ALBUMIN 1.7 G/DL (3.4-5.0); ALBUMIN/GLOBULIN RATIO 0.3 (1.1-1.5); ALKALINE PHOSPHATASE 77 IU/L (46-116); ANION GAP 7 (8-16); ASPARTATE AMINO TRANSFERASE 27 U/L (10-37); BILIRUBIN,TOTAL 0.6 MG/DL (0.1-1.0); BLOOD UREA NITROGEN 8 MG/DL (7-18); BUN/CREATININE RATIO 8.3 (5.4-32.0); CALCIUM 8.4 MG/DL (8.5-10.1); CHLORIDE 97 MMOL/L (99-107); CREATININE 0.96 MG/DL (0.60-1.10); GLUCOSE 95 MG/DL (70-104); MAGNESIUM 2.2 MG/DL (1.5-2.4); PHOSPHORUS 4.1 MG/DL (2.3-4.5); POTASSIUM 3.5 MMOL/L (3.5-5.1); PREALBUMIN 7.6 MG/DL (19-36); SODIUM 133 MMOL/L (135-145); TOTAL CARBON DIOXIDE 29.1 MMOL/L (24-32); TOTAL PROTEIN 6.9 G/DL (6.4-8.2); eGFR 89 ML/MIN
[2017-12-19 05:56] LABS: BASOPHILS % (AUTO) 0 % (0-1); EOSINOPHILS # (AUTO) 0.6 X10'3 (0-0.9); HEMATOCRIT 36.3 % (42.0-52.0); HEMOGLOBIN 12.4 g/dl (14.0-17.9); LYMPHOCYTES # (AUTO) 1.2 X10'3 (1.1-4.8); MEAN CORPUSCULAR HEMOGLOBIN 32.4 PG (27.0-31.0); MEAN CORPUSCULAR HGB CONC 34.2 % (33.0-36.5); MEAN CORPUSCULAR VOLUME 94.9 FL (78-98); MEAN PLATELET VOLUME 7.9 FL (7.4-10.4); MONOCYTES # (AUTO) 1.6 X10'3 (0-0.9); MONOCYTES % (AUTO) 7.8 % (2-12); NEUTROPHILS # (AUTO) 16.8 X10'3 (1.8-7.7); NEUTROPHILS % (AUTO) 83.2 % (42-75); PLATELET COUNT 577 X10'3 (140-440); RED BLOOD COUNT 3.82 X10'6 (4.70-6.10); RED CELL DISTRIBUTION WIDTH 13.2 % (11.5-14.5); WHITE BLOOD COUNT 20.2 X10'3 (4.5-11.0)
[2017-12-19] MEDS: lactobacillus rhamnosus 10,000 MMU CELLS/CAPSULE PO SCH ×2 (08:14→20:07)
[2017-12-19] MEDS: linezolid 600mg tablet PO SCH ×2 (08:14→20:07)
[2017-12-19] MEDS: fluconazole 100mg tablet PO SCH (08:14)
[2017-12-19] MEDS: pantoprazole 40 MG vial IV SCH (08:14)
[2017-12-19] MEDS: enoxaparin 40mg/0.4ml syringe SUBCUT SCH (08:15)
[2017-12-19] MEDS: folic acid inj. 2 MG, thiamine inj. 100 MG, MVI, adult No.4 with vit. K 10 ML in dextro... IV SCH ×4 (08:30)
[2017-12-19] MEDS: K, MAG and/or Phos replacement - Verify level? MC SCH (08:35)
[2017-12-19] MEDS ORDERED: NORMAL SALINE IJ ONE (13:05)
[2017-12-19] MEDS ORDERED: ALTEPLASE IJ ONE (13:05)
[2017-12-20] MEDS: normal saline 1000ml 1,000 ML IV SCH (00:29)
[2017-12-20] MEDS: piperacillin/tazo 3.375gm/50ml 50 ML IV SCH ×4 (02:45→19:52)
[2017-12-20] MEDS: HYDROmorphone/NS 1 mg/ml CADD 50 ML IV SCH ×12 (02:51→23:00)
[2017-12-20 03:00] VITALS: BP 109/67
[2017-12-20 06:00] VITALS: BP 107/73
[2017-12-20 06:03] LABS: PHOSPHORUS 4.4 MG/DL (2.3-4.5)
[2017-12-20 06:33] LABS: PARTIAL THROMBOPLASTIN TIME 29 SECONDS (22-32); PROTHROMBIN TIME 10.8 SECONDS (9.0-12.0)
[2017-12-20 07:22] LABS: BASOPHILS % (AUTO) 0.1 % (0-1); EOSINOPHILS # (AUTO) 0.8 X10'3 (0-0.9); EOSINOPHILS % (AUTO) 4.5 % (0-6); HEMATOCRIT 34.2 % (42.0-52.0); HEMOGLOBIN 11.8 g/dl (14.0-17.9); LYMPHOCYTES # (AUTO) 1.7 X10'3 (1.1-4.8); LYMPHOCYTES % (AUTO) 9.3 % (21-51); MEAN CORPUSCULAR HEMOGLOBIN 32.3 PG (27.0-31.0); MEAN CORPUSCULAR HGB CONC 34.5 % (33.0-36.5); MEAN CORPUSCULAR VOLUME 93.6 FL (78-98); MEAN PLATELET VOLUME 7.7 FL (7.4-10.4); MONOCYTES # (AUTO) 2.2 X10'3 (0-0.9); MONOCYTES % (AUTO) 11.9 % (2-12); NEUTROPHILS # (AUTO) 13.7 X10'3 (1.8-7.7); NEUTROPHILS % (AUTO) 74.2 % (42-75); PLATELET COUNT 637 X10'3 (140-440); RED BLOOD COUNT 3.65 X10'6 (4.70-6.10); RED CELL DISTRIBUTION WIDTH 13.5 % (11.5-14.5); WHITE BLOOD COUNT 18.5 X10'3 (4.5-11.0)
[2017-12-20 07:36] LABS: ALANINE AMINOTRANSFERASE 32 U/L (12-78); ALBUMIN 1.7 G/DL (3.4-5.0); ALBUMIN/GLOBULIN RATIO 0.3 (1.1-1.5); ALKALINE PHOSPHATASE 71 IU/L (46-116); ANION GAP 10 (8-16); ASPARTATE AMINO TRANSFERASE 32 U/L (10-37); BILIRUBIN,TOTAL 0.5 MG/DL (0.1-1.0); BLOOD UREA NITROGEN 6 MG/DL (7-18); BUN/CREATININE RATIO 5.9 (5.4-32.0); CALCIUM 8.5 MG/DL (8.5-10.1); CHLORIDE 100 MMOL/L (99-107); CREATININE 1.01 MG/DL (0.60-1.10); GLUCOSE 95 MG/DL (70-104); POTASSIUM 3.7 MMOL/L (3.5-5.1); SODIUM 137 MMOL/L (135-145); TOTAL PROTEIN 6.6 G/DL (6.4-8.2); eGFR 84 ML/MIN
[2017-12-20 07:41] LABS: LARGE PLATELETS FEW; PLATELET ESTIMATE INCREASED
[2017-12-20] MEDS: folic acid inj. 2 MG, thiamine inj. 100 MG, MVI, adult No.4 with vit. K 10 ML in dextro... IV SCH ×4 (08:00)
[2017-12-20] MEDS: K, MAG and/or Phos replacement - Verify level? MC SCH (08:00)
[2017-12-20] MEDS ORDERED: iohexol 300mg/ml 100ml inj. ONE (08:56)
[2017-12-20] MEDS ORDERED: thiamine inj. 100 MG in normal saline 100ml IV soln 99 ML IV ONE ×2 (09:10→11:15)
[2017-12-20] MEDS: Neutra Phos packet PO PRN (09:13)
[2017-12-20] MEDS: lactobacillus rhamnosus 10,000 MMU CELLS/CAPSULE PO SCH ×2 (09:13→19:52)
[2017-12-20] MEDS: pantoprazole 40 MG vial IV SCH (09:14)
[2017-12-20 11:00] VITALS: BP 105/69
[2017-12-20] MEDS: fluconazole 100mg tablet PO SCH (11:25)
[2017-12-20] MEDS: linezolid 600mg tablet PO SCH ×2 (11:25→19:52)
[2017-12-20] MEDS: enoxaparin 40mg/0.4ml syringe SUBCUT SCH (11:26)
[2017-12-20 15:00] VITALS: BP 109/68
[2017-12-20 19:00] VITALS: BP 123/80
[2017-12-20] MEDS: diphenhydrAMINE 25mg capsule PO PRN (19:51)
[2017-12-20 23:00] VITALS: BP 104/72
[2017-12-21] VITALS (17 sets, daily range): BP systolic 94–121; BP diastolic 21–75
[2017-12-21] MEDS: HYDROmorphone/NS 1 mg/ml CADD 50 ML IV SCH ×5 (00:57→09:00)
[2017-12-21] MEDS: piperacillin/tazo 3.375gm/50ml 50 ML IV SCH ×4 (02:13→20:43)
[2017-12-21] MEDS: diphenhydrAMINE 25mg capsule PO PRN (05:09)
[2017-12-21 05:58] LABS: PARTIAL THROMBOPLASTIN TIME 28 SECONDS (22-32); PROTHROMBIN TIME 10.4 SECONDS (9.0-12.0)
[2017-12-21] MEDS: linezolid 600mg tablet PO SCH ×2 (07:44→23:05)
[2017-12-21] MEDS: lactobacillus rhamnosus 10,000 MMU CELLS/CAPSULE PO SCH ×2 (07:45→23:05)
[2017-12-21] MEDS: fluconazole 100mg tablet PO SCH (07:45)
[2017-12-21] MEDS: pantoprazole 40 MG vial IV SCH (07:45)
[2017-12-21] MEDS: enoxaparin 40mg/0.4ml syringe SUBCUT SCH (07:48)
[2017-12-21] MEDS: K, MAG and/or Phos replacement - Verify level? MC SCH (08:00)
[2017-12-21] MEDS: folic acid inj. 2 MG, thiamine inj. 100 MG, MVI, adult No.4 with vit. K 10 ML in dextro... IV SCH ×4 (10:16)
[2017-12-21] MEDS ORDERED: LIDOcaine 1% (10mg/ml) 2ml vial ONE (12:57)
[2017-12-21] MEDS ORDERED: sevoflurane 250ml liquid IH ONE (13:40)
[2017-12-21] MEDS ORDERED: MIDAZolam 1mg/ml 10ml vial ONE (13:47)
[2017-12-21] MEDS ORDERED: fentaNYL /PF 50mcg/ml 5ml ampule ONE ×2 (13:48→15:49)
[2017-12-21] MEDS ORDERED: rocuronium 10mg/ml inj IV ONE ×2 (13:53)
[2017-12-21] MEDS ORDERED: propofol inj 20 ML IV ONE (13:53)
[2017-12-21] MEDS ORDERED: gentamicin 40 MG/1 ML inj ONE (14:55)
[2017-12-21] MEDS ORDERED: clindamycin phosphate 150mg/ml inj. ONE (14:55)
[2017-12-21] MEDS ORDERED: ePHEDrine 50MG/ML INJ. ONE (15:34)
[2017-12-21] MEDS ORDERED: albumin (Human) 5% 250ml 250 ML IV ONE ×2 (15:49)
[2017-12-21] MEDS ORDERED: ondansetron/PF 4mg/2ml inj IV PRN ×2 (16:25→17:10)
[2017-12-21] MEDS ORDERED: ringers solution, lacted 1,000 ML IV SCH (16:25)
[2017-12-21] MEDS ORDERED: midazolam 100mg in NS 100ml 100 ML IV PRN (16:38)
[2017-12-21] MEDS ORDERED: albuterol 2.5 MG/3 ML nebule NEB PRN (17:10)
[2017-12-21] MEDS ORDERED: propofol 1000mg/100ml bottle 100 ML IV ONE (17:10)
[2017-12-21] MEDS ORDERED: metoclopramide 5 mg/ml inj IV PRN (17:10)
[2017-12-21] MEDS ORDERED: naloxone 0.4 mg/ml inj IV PRN (17:10)
[2017-12-21] MEDS ORDERED: morphine 4 MG/ML inj SYRINge IV PRN ×2 (17:10)
[2017-12-21 17:47] LABS: ABG BASE EXCESS -4.4 mmol/L (-2.0-3.0); ABG HCO3 21.6 mmol/L (22.0-26.0); ABG OXYGEN SATURATION 91.9 % (95-98); ABG PCO2 (T) 41.8 mmHg (35.0-48.0); ABG PH (T) 7.327 (7.350-7.450); ABG PO2 (T) 64.7 mmHg (83-108); FCOHb 0.2 % (0.5-1.5); FMetHb 0.2 % (0.3-1.12); FO2Hb 91.5 % (94-100); MINUTE VOLUME 9 L/min; PATIENT TEMPERATURE 36.2; PEEP 10 cm H2O; RESPIRATORY RATE 12 b/min; RESPIRATORY RATE (OBSERVED) 12 b/min; TIDAL VOLUME 700 mL; TOTAL HEMOGLOBIN 12.2 G/dl (14.0-18.0)
[2017-12-21] MEDS: FENTANYL-0.9 % NACL/PF 100 ML IV PRN (18:00)
[2017-12-21 20:35] LABS: BASOPHILS % (AUTO) 0.1 % (0-1); EOSINOPHILS # (AUTO) 0.4 X10'3 (0-0.9); EOSINOPHILS % (AUTO) 1.5 % (0-6); HEMATOCRIT 34.1 % (42.0-52.0); HEMOGLOBIN 11.7 g/dl (14.0-17.9); LYMPHOCYTES % (AUTO) 3.8 % (21-51); MEAN CORPUSCULAR HEMOGLOBIN 32.3 PG (27.0-31.0); MEAN CORPUSCULAR HGB CONC 34.2 % (33.0-36.5); MEAN CORPUSCULAR VOLUME 94.3 FL (78-98); MEAN PLATELET VOLUME 7.3 FL (7.4-10.4); MONOCYTES # (AUTO) 1.8 X10'3 (0-0.9); NEUTROPHILS # (AUTO) 22.7 X10'3 (1.8-7.7); NEUTROPHILS % (AUTO) 87.6 % (42-75); PLATELET COUNT 797 X10'3 (140-440); RED BLOOD COUNT 3.61 X10'6 (4.70-6.10); RED CELL DISTRIBUTION WIDTH 13.4 % (11.5-14.5)
[2017-12-21 20:50] LABS: ALANINE AMINOTRANSFERASE 20 U/L (12-78); ALBUMIN 1.8 G/DL (3.4-5.0); ALBUMIN/GLOBULIN RATIO 0.4 (1.1-1.5); ALKALINE PHOSPHATASE 54 IU/L (46-116); ANION GAP 11 (8-16); ASPARTATE AMINO TRANSFERASE 33 U/L (10-37); BILIRUBIN,TOTAL 0.5 MG/DL (0.1-1.0); BLOOD UREA NITROGEN 4 MG/DL (7-18); BUN/CREATININE RATIO 4.7 (5.4-32.0); CALCIUM 8.2 MG/DL (8.5-10.1); CHLORIDE 101 MMOL/L (99-107); CREATININE 0.86 MG/DL (0.60-1.10); GLUCOSE 121 MG/DL (70-104); MAGNESIUM 1.9 MG/DL (1.5-2.4); POTASSIUM 4.2 MMOL/L (3.5-5.1); SODIUM 137 MMOL/L (135-145); TOTAL CARBON DIOXIDE 25.3 MMOL/L (24-32); TOTAL PROTEIN 6.3 G/DL (6.4-8.2); eGFR > 90 ML/MIN
[2017-12-21 22:14] LABS: PLATELET ESTIMATE INCREASED; TOTAL CELLS COUNTED 100
[2017-12-21 22:15] LABS: ANISOCYTOSIS FEW; POLYCHROMASIA FEW
[2017-12-21] MEDS ORDERED: acetaminophen 325mg tablet PO PRN (22:30)
[2017-12-21] MEDS: propofol 1000mg/100ml bottle 100 ML IV PRN (23:48)
[2017-12-22] VITALS (22 sets, daily range): BP systolic 92–126; BP diastolic 56–82
[2017-12-22] MEDS: FENTANYL-0.9 % NACL/PF 100 ML IV PRN ×2 (01:48→07:39)
[2017-12-22] MEDS: normal saline 1000ml 1,000 ML IV SCH (02:19)
[2017-12-22] MEDS: piperacillin/tazo 3.375gm/50ml 50 ML IV SCH ×4 (02:19→20:45)
[2017-12-22 02:42] LABS: BASOPHILS # (AUTO) 0.1 X10'3 (0-0.2); BASOPHILS % (AUTO) 0.2 % (0-1); EOSINOPHILS # (AUTO) 0.3 X10'3 (0-0.9); EOSINOPHILS % (AUTO) 1.3 % (0-6); HEMATOCRIT 34.2 % (42.0-52.0); HEMOGLOBIN 11.7 g/dl (14.0-17.9); LYMPHOCYTES # (AUTO) 1.3 X10'3 (1.1-4.8); LYMPHOCYTES % (AUTO) 4.9 % (21-51); MEAN CORPUSCULAR HEMOGLOBIN 32.3 PG (27.0-31.0); MEAN CORPUSCULAR HGB CONC 34.4 % (33.0-36.5); MEAN CORPUSCULAR VOLUME 93.9 FL (78-98); MEAN PLATELET VOLUME 7.3 FL (7.4-10.4); MONOCYTES # (AUTO) 2.2 X10'3 (0-0.9); MONOCYTES % (AUTO) 8.5 % (2-12); NEUTROPHILS # (AUTO) 21.8 X10'3 (1.8-7.7); NEUTROPHILS % (AUTO) 85.1 % (42-75); PLATELET COUNT 828 X10'3 (140-440); RED BLOOD COUNT 3.64 X10'6 (4.70-6.10); RED CELL DISTRIBUTION WIDTH 13.3 % (11.5-14.5)
[2017-12-22 02:47] LABS: PARTIAL THROMBOPLASTIN TIME 28 SECONDS (22-32); PROTHROMBIN TIME 10.8 SECONDS (9.0-12.0)
[2017-12-22 03:01] LABS: WHITE BLOOD COUNT 25.6 X10'3 (4.5-11.0)
[2017-12-22 03:20] LABS: ABG BASE EXCESS -1.6 mmol/L (-2.0-3.0); ABG HCO3 21.9 mmol/L (22.0-26.0); ABG OXYGEN SATURATION 98.1 % (95-98); ABG PCO2 (T) 34.3 mmHg (35.0-48.0); ABG PH (T) 7.426 (7.350-7.450); ABG PO2 (T) 112.7 mmHg (83-108); FCOHb 0.1 % (0.5-1.5); FMetHb 0.1 % (0.3-1.12); FO2Hb 97.9 % (94-100); MINUTE VOLUME 12 L/min; PATIENT TEMPERATURE 37.8; PEEP 10 cm H2O; RESPIRATORY RATE 12 b/min; RESPIRATORY RATE (OBSERVED) 21 b/min; TIDAL VOLUME 700 mL; TOTAL HEMOGLOBIN 12.3 G/dl (14.0-18.0)
[2017-12-22 03:38] LABS: ALANINE AMINOTRANSFERASE 31 U/L (12-78); ALBUMIN 1.8 G/DL (3.4-5.0); ALBUMIN/GLOBULIN RATIO 0.4 (1.1-1.5); ALKALINE PHOSPHATASE 57 IU/L (46-116); ANION GAP 12 (8-16); ASPARTATE AMINO TRANSFERASE 44 U/L (10-37); BILIRUBIN,TOTAL 0.5 MG/DL (0.1-1.0); BLOOD UREA NITROGEN 4 MG/DL (7-18); BUN/CREATININE RATIO 4.1 (5.4-32.0); CALCIUM 8.2 MG/DL (8.5-10.1); CHLORIDE 101 MMOL/L (99-107); CREATININE 0.97 MG/DL (0.60-1.10); GLUCOSE 114 MG/DL (70-104); MAGNESIUM 1.9 MG/DL (1.5-2.4); PHOSPHORUS 4.7 MG/DL (2.3-4.5); POTASSIUM 4.6 MMOL/L (3.5-5.1); PREALBUMIN 8.6 MG/DL (19-36); SODIUM 136 MMOL/L (135-145); TOTAL CARBON DIOXIDE 23.3 MMOL/L (24-32); TOTAL PROTEIN 6.4 G/DL (6.4-8.2); eGFR 88 ML/MIN
[2017-12-22] MEDS: propofol 1000mg/100ml bottle 100 ML IV PRN (05:42)
[2017-12-22] MEDS: K, MAG and/or Phos replacement - Verify level? MC SCH ×2 (06:45→07:43)
[2017-12-22] MEDS: pantoprazole 40 MG vial IV SCH (08:19)
[2017-12-22] MEDS: enoxaparin 40mg/0.4ml syringe SUBCUT SCH (08:20)
[2017-12-22] MEDS: linezolid 600mg tablet PO SCH ×2 (08:20→20:45)
[2017-12-22] MEDS: folic acid inj. 2 MG, thiamine inj. 100 MG, MVI, adult No.4 with vit. K 10 ML in dextro... IV SCH ×4 (08:20)
[2017-12-22] MEDS: fluconazole 100mg tablet PO SCH (08:20)
[2017-12-22] MEDS: lactobacillus rhamnosus 10,000 MMU CELLS/CAPSULE PO SCH ×2 (08:20→20:43)
[2017-12-22] MEDS ORDERED: ketorolac trometh. 30mg/ml inj. IV ONE (10:45)
[2017-12-22] MEDS: HYDROmorphone/NS 1 mg/ml CADD 50 ML IV SCH ×4 (13:00→23:00)
[2017-12-22 19:17] LABS: WHITE BLOOD COUNT 25.9 X10'3 (4.5-11.0)
[2017-12-22] MEDS: diphenhydrAMINE 25mg capsule PO PRN (20:44)
[2017-12-23] VITALS (20 sets, daily range): BP systolic 100–124; BP diastolic 57–84
[2017-12-23] MEDS: HYDROmorphone/NS 1 mg/ml CADD 50 ML IV SCH ×12 (01:00→23:00)
[2017-12-23] MEDS: piperacillin/tazo 3.375gm/50ml 50 ML IV SCH ×4 (02:21→20:01)
[2017-12-23 05:03] LABS: BASOPHILS # (AUTO) 0.1 X10'3 (0-0.2); BASOPHILS % (AUTO) 0.5 % (0-1); EOSINOPHILS # (AUTO) 0.7 X10'3 (0-0.9); EOSINOPHILS % (AUTO) 3.6 % (0-6); HEMATOCRIT 29.7 % (42.0-52.0); HEMOGLOBIN 10.1 g/dl (14.0-17.9); LYMPHOCYTES # (AUTO) 1.9 X10'3 (1.1-4.8); LYMPHOCYTES % (AUTO) 9.9 % (21-51); MEAN CORPUSCULAR HEMOGLOBIN 32.4 PG (27.0-31.0); MEAN CORPUSCULAR HGB CONC 34.1 % (33.0-36.5); MEAN CORPUSCULAR VOLUME 95.2 FL (78-98); MEAN PLATELET VOLUME 7.5 FL (7.4-10.4); MONOCYTES # (AUTO) 2.3 X10'3 (0-0.9); MONOCYTES % (AUTO) 11.6 % (2-12); NEUTROPHILS # (AUTO) 14.6 X10'3 (1.8-7.7); NEUTROPHILS % (AUTO) 74.4 % (42-75); PLATELET COUNT 823 X10'3 (140-440); RED BLOOD COUNT 3.13 X10'6 (4.70-6.10); RED CELL DISTRIBUTION WIDTH 13.2 % (11.5-14.5); WHITE BLOOD COUNT 19.6 X10'3 (4.5-11.0)
[2017-12-23 05:20] LABS: PARTIAL THROMBOPLASTIN TIME 29 SECONDS (22-32); PROTHROMBIN TIME 10.6 SECONDS (9.0-12.0)
[2017-12-23 05:35] LABS: ALANINE AMINOTRANSFERASE 19 U/L (12-78); ALBUMIN 1.5 G/DL (3.4-5.0); ALBUMIN/GLOBULIN RATIO 0.3 (1.1-1.5); ALKALINE PHOSPHATASE 58 IU/L (46-116); ANION GAP 9 (8-16); ASPARTATE AMINO TRANSFERASE 35 U/L (10-37); BILIRUBIN,TOTAL 0.4 MG/DL (0.1-1.0); BLOOD UREA NITROGEN 5 MG/DL (7-18); BUN/CREATININE RATIO 5.6 (5.4-32.0); CALCIUM 7.9 MG/DL (8.5-10.1); CHLORIDE 101 MMOL/L (99-107); CREATININE 0.89 MG/DL (0.60-1.10); GLUCOSE 86 MG/DL (70-104); MAGNESIUM 2.1 MG/DL (1.5-2.4); PHOSPHORUS 3.8 MG/DL (2.3-4.5); POTASSIUM 3.6 MMOL/L (3.5-5.1); SODIUM 138 MMOL/L (135-145); TOTAL CARBON DIOXIDE 27.7 MMOL/L (24-32); TOTAL PROTEIN 6.2 G/DL (6.4-8.2); eGFR > 90 ML/MIN
[2017-12-23] MEDS: K, MAG and/or Phos replacement - Verify level? MC SCH (08:00)
[2017-12-23] MEDS: enoxaparin 40mg/0.4ml syringe SUBCUT SCH (08:03)
[2017-12-23] MEDS: lactobacillus rhamnosus 10,000 MMU CELLS/CAPSULE PO SCH ×2 (08:04→20:00)
[2017-12-23] MEDS: linezolid 600mg tablet PO SCH ×2 (08:04→20:01)
[2017-12-23] MEDS: pantoprazole 40 MG vial IV SCH (08:05)
[2017-12-23] MEDS ORDERED: ketorolac tromethamine 15mg/ml inj. IV ONE (08:20)
[2017-12-23] MEDS: folic acid inj. 2 MG, thiamine inj. 100 MG, MVI, adult No.4 with vit. K 10 ML in dextro... IV SCH ×4 (08:51)
[2017-12-24] VITALS (13 sets, daily range): BP systolic 99–138; BP diastolic 63–87
[2017-12-24] MEDS: normal saline 1000ml 1,000 ML IV SCH (00:29)
[2017-12-24] MEDS: HYDROmorphone/NS 1 mg/ml CADD 50 ML IV SCH ×12 (01:00→23:00)
[2017-12-24] MEDS: piperacillin/tazo 3.375gm/50ml 50 ML IV SCH ×4 (02:08→21:51)
[2017-12-24 03:14] LABS: BASOPHILS % (AUTO) 0.3 % (0-1); EOSINOPHILS # (AUTO) 0.7 X10'3 (0-0.9); EOSINOPHILS % (AUTO) 4.4 % (0-6); HEMATOCRIT 28.4 % (42.0-52.0); HEMOGLOBIN 9.9 g/dl (14.0-17.9); LYMPHOCYTES % (AUTO) 12.1 % (21-51); MEAN CORPUSCULAR HEMOGLOBIN 32.5 PG (27.0-31.0); MEAN CORPUSCULAR HGB CONC 34.7 % (33.0-36.5); MEAN CORPUSCULAR VOLUME 93.6 FL (78-98); MEAN PLATELET VOLUME 7.3 FL (7.4-10.4); MONOCYTES # (AUTO) 1.7 X10'3 (0-0.9); MONOCYTES % (AUTO) 10.3 % (2-12); NEUTROPHILS % (AUTO) 72.9 % (42-75); PLATELET COUNT 882 X10'3 (140-440); RED BLOOD COUNT 3.03 X10'6 (4.70-6.10); RED CELL DISTRIBUTION WIDTH 13.5 % (11.5-14.5); WHITE BLOOD COUNT 16.4 X10'3 (4.5-11.0)
[2017-12-24 03:36] LABS: ALANINE AMINOTRANSFERASE 27 U/L (12-78); ALBUMIN 1.5 G/DL (3.4-5.0); ALBUMIN/GLOBULIN RATIO 0.3 (1.1-1.5); ALKALINE PHOSPHATASE 58 IU/L (46-116); ANION GAP 6 (8-16); ASPARTATE AMINO TRANSFERASE 48 U/L (10-37); BILIRUBIN,TOTAL 0.3 MG/DL (0.1-1.0); BLOOD UREA NITROGEN 4 MG/DL (7-18); CALCIUM 8.1 MG/DL (8.5-10.1); CHLORIDE 99 MMOL/L (99-107); GLUCOSE 93 MG/DL (70-104); POTASSIUM 3.6 MMOL/L (3.5-5.1); SODIUM 133 MMOL/L (135-145); TOTAL CARBON DIOXIDE 28.1 MMOL/L (24-32); TOTAL PROTEIN 6.5 G/DL (6.4-8.2); eGFR > 90 ML/MIN
[2017-12-24] MEDS: lactobacillus rhamnosus 10,000 MMU CELLS/CAPSULE PO SCH ×2 (07:43→21:51)
[2017-12-24] MEDS: pantoprazole 40 MG vial IV SCH (07:43)
[2017-12-24] MEDS: linezolid 600mg tablet PO SCH ×2 (07:43→21:51)
[2017-12-24] MEDS: enoxaparin 40mg/0.4ml syringe SUBCUT SCH (07:45)
[2017-12-24] MEDS: folic acid inj. 2 MG, thiamine inj. 100 MG, MVI, adult No.4 with vit. K 10 ML in dextro... IV SCH ×4 (07:53)
[2017-12-24] MEDS: K, MAG and/or Phos replacement - Verify level? MC SCH (08:00)
[2017-12-25] MEDS: HYDROmorphone/NS 1 mg/ml CADD 50 ML IV SCH ×12 (01:00→23:00)
[2017-12-25] MEDS: HYDROcodone/acetaminophen 10/325mg tab PO PRN (01:13)
[2017-12-25] MEDS: piperacillin/tazo 3.375gm/50ml 50 ML IV SCH ×4 (02:46→19:37)
[2017-12-25 03:00] VITALS: BP 106/69
[2017-12-25 06:00] VITALS: BP 123/76
[2017-12-25 06:36] LABS: BASOPHILS % (AUTO) 0.3 % (0-1); EOSINOPHILS # (AUTO) 0.7 X10'3 (0-0.9); EOSINOPHILS % (AUTO) 4.3 % (0-6); HEMATOCRIT 29.2 % (42.0-52.0); HEMOGLOBIN 10.3 g/dl (14.0-17.9); LYMPHOCYTES % (AUTO) 11.9 % (21-51); MEAN CORPUSCULAR HEMOGLOBIN 32.7 PG (27.0-31.0); MEAN CORPUSCULAR HGB CONC 35.1 % (33.0-36.5); MEAN CORPUSCULAR VOLUME 93.3 FL (78-98); MEAN PLATELET VOLUME 7.3 FL (7.4-10.4); MONOCYTES # (AUTO) 1.4 X10'3 (0-0.9); NEUTROPHILS # (AUTO) 12.7 X10'3 (1.8-7.7); NEUTROPHILS % (AUTO) 75.5 % (42-75); PLATELET COUNT 925 X10'3 (140-440); RED BLOOD COUNT 3.13 X10'6 (4.70-6.10); RED CELL DISTRIBUTION WIDTH 13.5 % (11.5-14.5); WHITE BLOOD COUNT 16.8 X10'3 (4.5-11.0)
[2017-12-25 06:56] LABS: ALANINE AMINOTRANSFERASE 27 U/L (12-78); ALBUMIN 1.6 G/DL (3.4-5.0); ALBUMIN/GLOBULIN RATIO 0.3 (1.1-1.5); ALKALINE PHOSPHATASE 59 IU/L (46-116); ANION GAP 9 (8-16); ASPARTATE AMINO TRANSFERASE 35 U/L (10-37); BILIRUBIN,TOTAL 0.3 MG/DL (0.1-1.0); BLOOD UREA NITROGEN 3 MG/DL (7-18); CALCIUM 8.4 MG/DL (8.5-10.1); CHLORIDE 100 MMOL/L (99-107); CREATININE 0.75 MG/DL (0.60-1.10); GLUCOSE 83 MG/DL (70-104); MAGNESIUM 1.8 MG/DL (1.5-2.4); POTASSIUM 3.3 MMOL/L (3.5-5.1); SODIUM 136 MMOL/L (135-145); TOTAL CARBON DIOXIDE 27.5 MMOL/L (24-32); TOTAL PROTEIN 6.7 G/DL (6.4-8.2); eGFR > 90 ML/MIN
[2017-12-25] MEDS: K, MAG and/or Phos replacement - Verify level? MC SCH (07:03)
[2017-12-25] MEDS: lactobacillus rhamnosus 10,000 MMU CELLS/CAPSULE PO SCH ×2 (07:36→19:37)
[2017-12-25] MEDS: multivitamins, therapeutics tablet PO SCH (07:36)
[2017-12-25] MEDS: thiamine 100mg tablet PO SCH (07:37)
[2017-12-25] MEDS: folic acid 1mg tablet PO SCH (07:37)
[2017-12-25] MEDS: linezolid 600mg tablet PO SCH ×2 (07:37→19:37)
[2017-12-25] MEDS: enoxaparin 40mg/0.4ml syringe SUBCUT SCH (07:38)
[2017-12-25] MEDS: pantoprazole 40 MG vial IV SCH (07:39)
[2017-12-25] MEDS: potassium Cl oral solution 20 MEQ/15 ML PO PRN ×3 (07:39→15:58)
[2017-12-25 11:00] VITALS: BP 110/80
[2017-12-25 15:00] VITALS: BP 122/79
[2017-12-25 19:00] VITALS: BP 120/78
[2017-12-25] MEDS: diphenhydrAMINE 25mg capsule PO PRN (21:54)
[2017-12-25 23:00] VITALS: BP 108/21
[2017-12-26] MEDS ORDERED: temazepam 15mg capsule PO PRN (00:05)
[2017-12-26] MEDS: normal saline 1000ml 1,000 ML IV SCH (00:29)
[2017-12-26] MEDS: HYDROmorphone/NS 1 mg/ml CADD 50 ML IV SCH ×11 (01:00→21:00)
[2017-12-26] MEDS: piperacillin/tazo 3.375gm/50ml 50 ML IV SCH ×4 (02:46→20:18)
[2017-12-26 03:00] VITALS: BP 109/66
[2017-12-26 05:16] LABS: BASOPHILS % (AUTO) 0.3 % (0-1); EOSINOPHILS # (AUTO) 0.6 X10'3 (0-0.9); HEMATOCRIT 27.4 % (42.0-52.0); HEMOGLOBIN 9.6 g/dl (14.0-17.9); LYMPHOCYTES # (AUTO) 1.7 X10'3 (1.1-4.8); LYMPHOCYTES % (AUTO) 12.1 % (21-51); MEAN CORPUSCULAR HEMOGLOBIN 32.4 PG (27.0-31.0); MEAN CORPUSCULAR VOLUME 92.7 FL (78-98); MONOCYTES # (AUTO) 1.4 X10'3 (0-0.9); NEUTROPHILS # (AUTO) 10.5 X10'3 (1.8-7.7); NEUTROPHILS % (AUTO) 73.6 % (42-75); PLATELET COUNT 913 X10'3 (140-440); RED BLOOD COUNT 2.95 X10'6 (4.70-6.10); RED CELL DISTRIBUTION WIDTH 13.6 % (11.5-14.5); WHITE BLOOD COUNT 14.3 X10'3 (4.5-11.0)
[2017-12-26 05:43] LABS: ALANINE AMINOTRANSFERASE 27 U/L (12-78); ALBUMIN 1.5 G/DL (3.4-5.0); ALBUMIN/GLOBULIN RATIO 0.3 (1.1-1.5); ALKALINE PHOSPHATASE 56 IU/L (46-116); ANION GAP 6 (8-16); ASPARTATE AMINO TRANSFERASE 30 U/L (10-37); BILIRUBIN,TOTAL 0.3 MG/DL (0.1-1.0); BLOOD UREA NITROGEN 1 MG/DL (7-18); BUN/CREATININE RATIO 1.2 (5.4-32.0); CALCIUM 8.5 MG/DL (8.5-10.1); CHLORIDE 101 MMOL/L (99-107); CREATININE 0.81 MG/DL (0.60-1.10); GLUCOSE 91 MG/DL (70-104); MAGNESIUM 1.8 MG/DL (1.5-2.4); POTASSIUM 3.5 MMOL/L (3.5-5.1); SODIUM 136 MMOL/L (135-145); TOTAL CARBON DIOXIDE 28.6 MMOL/L (24-32); TOTAL PROTEIN 6.6 G/DL (6.4-8.2); eGFR > 90 ML/MIN
[2017-12-26] MEDS: CADD PCA waste documentation MC PRN (05:43)
[2017-12-26 06:00] VITALS: BP 113/74
[2017-12-26] MEDS: K, MAG and/or Phos replacement - Verify level? MC SCH (06:58)
[2017-12-26] MEDS: linezolid 600mg tablet PO SCH ×2 (07:13→20:17)
[2017-12-26] MEDS: folic acid 1mg tablet PO SCH (07:13)
[2017-12-26] MEDS: multivitamins, therapeutics tablet PO SCH (07:13)
[2017-12-26] MEDS: thiamine 100mg tablet PO SCH (07:13)
[2017-12-26] MEDS: lactobacillus rhamnosus 10,000 MMU CELLS/CAPSULE PO SCH ×2 (07:14→20:17)
[2017-12-26] MEDS: pantoprazole 40 MG vial IV SCH (07:15)
[2017-12-26] MEDS: enoxaparin 40mg/0.4ml syringe SUBCUT SCH (07:15)
[2017-12-26 11:00] VITALS: BP 121/77
[2017-12-26 15:00] VITALS: BP 115/76
[2017-12-26] MEDS: lactose-reduced food (Ensure Enlive) - 237ml bottle PO SCH (18:00)
[2017-12-26 19:00] VITALS: BP 119/85
[2017-12-26 23:00] VITALS: BP 111/68
[2017-12-27] MEDS: HYDROmorphone/NS 1 mg/ml CADD 50 ML IV SCH ×4 (01:00→09:00)
[2017-12-27] MEDS: piperacillin/tazo 3.375gm/50ml 50 ML IV SCH ×4 (01:23→19:36)
[2017-12-27] MEDS: HYDROcodone/acetaminophen 10/325mg tab PO PRN ×5 (02:00→23:11)
[2017-12-27 03:00] VITALS: BP 118/70
[2017-12-27 06:00] VITALS: BP 116/78
[2017-12-27] MEDS: thiamine 100mg tablet PO SCH (07:19)
[2017-12-27] MEDS: multivitamins, therapeutics tablet PO SCH (07:19)
[2017-12-27] MEDS: linezolid 600mg tablet PO SCH ×2 (07:19→19:36)
[2017-12-27] MEDS: lactobacillus rhamnosus 10,000 MMU CELLS/CAPSULE PO SCH ×2 (07:19→19:36)
[2017-12-27] MEDS: pantoprazole 40mg Tablet.DR PO SCH (07:19)
[2017-12-27] MEDS: folic acid 1mg tablet PO SCH (07:19)
[2017-12-27] MEDS: K, MAG and/or Phos replacement - Verify level? MC SCH (07:26)
[2017-12-27] MEDS: enoxaparin 40mg/0.4ml syringe SUBCUT SCH ×2 (07:27→14:33)
[2017-12-27] MEDS: lactose-reduced food (Ensure Enlive) - 237ml bottle PO SCH ×3 (08:00→18:00)
[2017-12-27] MEDS ORDERED: HYDROmorphone inj. 0.5 MG/0.5 ML DISP.SYRIN IV PRN (10:05)
[2017-12-27 11:00] VITALS: BP 116/71
[2017-12-27 15:00] VITALS: BP 133/84
[2017-12-27] MEDS: LORazepam 0.5 MG tablet PO PRN (17:34)
[2017-12-27] MEDS: CADD PCA waste documentation MC PRN (17:40)
[2017-12-27 18:00] VITALS: BP 127/80
[2017-12-27 22:00] VITALS: BP 117/71
[2017-12-28] MEDS: normal saline 1000ml 1,000 ML IV SCH ×2 (00:29→07:39)
[2017-12-28 02:00] VITALS: BP 114/77
[2017-12-28] MEDS: piperacillin/tazo 3.375gm/50ml 50 ML IV SCH ×4 (02:20→20:01)
[2017-12-28] MEDS: HYDROcodone/acetaminophen 10/325mg tab PO PRN ×5 (03:20→23:53)
[2017-12-28 06:00] VITALS: BP 119/74
[2017-12-28] MEDS: linezolid 600mg tablet PO SCH ×2 (07:36→20:01)
[2017-12-28] MEDS: pantoprazole 40mg Tablet.DR PO SCH (07:36)
[2017-12-28] MEDS: folic acid 1mg tablet PO SCH (07:37)
[2017-12-28] MEDS: multivitamins, therapeutics tablet PO SCH (07:37)
[2017-12-28] MEDS: lactobacillus rhamnosus 10,000 MMU CELLS/CAPSULE PO SCH ×2 (07:37→20:01)
[2017-12-28] MEDS: thiamine 100mg tablet PO SCH (07:37)
[2017-12-28] MEDS: enoxaparin 40mg/0.4ml syringe SUBCUT SCH (07:38)
[2017-12-28] MEDS: K, MAG and/or Phos replacement - Verify level? MC SCH (08:00)
[2017-12-28] MEDS: lactose-reduced food (Ensure Enlive) - 237ml bottle PO SCH ×3 (08:00→18:00)
[2017-12-28] MEDS: HYDROmorphone 1 mg/ml syringe IV PRN ×2 (09:25→14:15)
[2017-12-28 11:00] VITALS: BP 106/74
[2017-12-28] MEDS: LORazepam 0.5 MG tablet PO PRN ×2 (11:37→17:14)
[2017-12-28 15:00] VITALS: BP 116/69
[2017-12-28] MEDS ORDERED: HYDROmorphone 1 mg/ml syringe IV ONE (16:40)
[2017-12-28 18:00] VITALS: BP 113/71
[2017-12-28 22:00] VITALS: BP 112/68
[2017-12-29 02:00] VITALS: BP 119/75
[2017-12-29] MEDS: piperacillin/tazo 3.375gm/50ml 50 ML IV SCH ×2 (02:12→08:07)
[2017-12-29] MEDS: HYDROcodone/acetaminophen 10/325mg tab PO PRN ×5 (04:17→21:30)
[2017-12-29 06:00] VITALS: BP 122/84
[2017-12-29] MEDS: K, MAG and/or Phos replacement - Verify level? MC SCH (07:38)
[2017-12-29] MEDS: pantoprazole 40mg Tablet.DR PO SCH (08:06)
[2017-12-29] MEDS: folic acid 1mg tablet PO SCH (08:06)
[2017-12-29] MEDS: multivitamins, therapeutics tablet PO SCH (08:07)
[2017-12-29] MEDS: linezolid 600mg tablet PO SCH ×2 (08:07→19:25)
[2017-12-29] MEDS: thiamine 100mg tablet PO SCH (08:07)
[2017-12-29] MEDS: lactobacillus rhamnosus 10,000 MMU CELLS/CAPSULE PO SCH ×2 (08:07→19:25)
[2017-12-29] MEDS: lactose-reduced food (Ensure Enlive) - 237ml bottle PO SCH ×3 (08:08→18:00)
[2017-12-29] MEDS: enoxaparin 40mg/0.4ml syringe SUBCUT SCH (08:08)
[2017-12-29 11:00] VITALS: BP 119/86
[2017-12-29 12:22] LABS: BASOPHILS # (AUTO) 0.1 X10'3 (0-0.2); BASOPHILS % (AUTO) 0.6 % (0-1); EOSINOPHILS # (AUTO) 0.5 X10'3 (0-0.9); EOSINOPHILS % (AUTO) 3.3 % (0-6); HEMATOCRIT 31.7 % (42.0-52.0); HEMOGLOBIN 10.6 g/dl (14.0-17.9); LYMPHOCYTES # (AUTO) 2.5 X10'3 (1.1-4.8); LYMPHOCYTES % (AUTO) 17.1 % (21-51); MEAN CORPUSCULAR HEMOGLOBIN 31.6 PG (27.0-31.0); MEAN CORPUSCULAR HGB CONC 33.6 % (33.0-36.5); MEAN CORPUSCULAR VOLUME 94.1 FL (78-98); MEAN PLATELET VOLUME 6.3 FL (7.4-10.4); MONOCYTES # (AUTO) 1.2 X10'3 (0-0.9); MONOCYTES % (AUTO) 8.3 % (2-12); NEUTROPHILS # (AUTO) 10.3 X10'3 (1.8-7.7); NEUTROPHILS % (AUTO) 70.7 % (42-75); RED BLOOD COUNT 3.37 X10'6 (4.70-6.10); RED CELL DISTRIBUTION WIDTH 14.2 % (11.5-14.5); WHITE BLOOD COUNT 14.6 X10'3 (4.5-11.0)
[2017-12-29 12:24] LABS: PLATELET COUNT 1012 X10'3 (140-440)
[2017-12-29] MEDS ORDERED: aspirin 81mg tablet.DR PO ONE (13:50)
[2017-12-29] MEDS: HYDROmorphone 1 mg/ml syringe IV PRN (14:19)
[2017-12-29 15:00] VITALS: BP 135/84
[2017-12-29 18:00] VITALS: BP 123/82
[2017-12-29] MEDS: amox tr/potassium clavulanate 875/125mg TAB PO SCH (19:25)
[2017-12-29 22:00] VITALS: BP 119/75
[2017-12-30] MEDS: HYDROcodone/acetaminophen 10/325mg tab PO PRN ×4 (01:34→16:21)
[2017-12-30 02:00] VITALS: BP 118/75
[2017-12-30 06:00] VITALS: BP 117/81
[2017-12-30] MEDS ORDERED: aspirin 81mg tablet.DR PO SCH (08:00)
[2017-12-30] MEDS: lactose-reduced food (Ensure Enlive) - 237ml bottle PO SCH (08:16)
[2017-12-30] MEDS: amox tr/potassium clavulanate 875/125mg TAB PO SCH (08:20)
[2017-12-30] MEDS: linezolid 600mg tablet PO SCH (08:21)
[2017-12-30] MEDS: thiamine 100mg tablet PO SCH (08:21)
[2017-12-30] MEDS: multivitamins, therapeutics tablet PO SCH (08:22)
[2017-12-30] MEDS: folic acid 1mg tablet PO SCH (08:22)
[2017-12-30] MEDS: pantoprazole 40mg Tablet.DR PO SCH (08:23)
[2017-12-30] MEDS: lactobacillus rhamnosus 10,000 MMU CELLS/CAPSULE PO SCH (08:23)
[2017-12-30] MEDS: enoxaparin 40mg/0.4ml syringe SUBCUT SCH (08:26)
[2017-12-30] MEDS: HYDROmorphone 1 mg/ml syringe IV PRN ×2 (08:30→14:30)
[2017-12-30 11:00] VITALS: BP 120/79
[2017-12-30] MEDS ORDERED: HYDR-565 PO (11:46)
[2017-12-30] MEDS ORDERED: AMOX-422 PO (11:46)
[2017-12-30] MEDS ORDERED: ASPI81TA52 PO (11:46)
[2017-12-30] MEDS ORDERED: LINE600T36 PO (11:46)
[2017-12-30 15:00] VITALS: BP 117/83
== END 2017-12-30 16:42 | disposition home or self-care (01) | DRG 163 ==
LOC: ER 06:38 → ED HOLD 11:57 → EDBEDREQ 12:17 → PCU 3S 13:35 → PACU 15:02 → CICU 2S 19:27 → PCU 3S 12-19 15:50 → ICU 2S 12-21 16:30 → CICU 2S 12-21 18:03 → PCU 3S 12-24 08:59
PROVIDERS: ADMIT Internal Medicine; ATTEND Family Medicine
PROC: 0DU Gastrointestinal System, Supplement (ICD-10-PCS; 2017-12-09)
PROC: 0D9600Z Drainage of Stomach with Drainage Device, Open Approach (ICD-10-PCS; 2017-12-09)
PROC: B32T1ZZ Computerized Tomography (CT Scan) of Left Pulmonary Artery using Low Osmolar Contrast (ICD-10-PCS; 2017-12-09)
PROC: B32S1ZZ Computerized Tomography (CT Scan) of Right Pulmonary Artery using Low Osmolar Contrast (ICD-10-PCS; 2017-12-09)
PROC: 0W9B30Z Drainage of Left Pleural Cavity with Drainage Device, Percutaneous Approach (ICD-10-PCS; 2017-12-09)
PROC: 0W9B00Z Drainage of Left Pleural Cavity with Drainage Device, Open Approach (ICD-10-PCS; 2017-12-09)
PROC: 0DQ30ZZ Repair Lower Esophagus, Open Approach (ICD-10-PCS; 2017-12-09)
PROC: BW241ZZ Computerized Tomography (CT Scan) of Chest and Abdomen using Low Osmolar Contrast (ICD-10-PCS; 2017-12-12)
PROC: BW251ZZ Computerized Tomography (CT Scan) of Chest, Abdomen and Pelvis using Low Osmolar Contrast (ICD-10-PCS; principal; 2017-12-16)
PROC: 0W9B30Z Drainage of Left Pleural Cavity with Drainage Device, Percutaneous Approach (ICD-10-PCS; 2017-12-16)
PROC: 3E0L3GC Introduction of Other Therapeutic Substance into Pleural Cavity, Percutaneous Approach (ICD-10-PCS; 2017-12-16)
PROC: 0BNJ0ZZ Release Left Lower Lung Lobe, Open Approach (ICD-10-PCS; 2017-12-21)
PROC: 0BNG0ZZ Release Left Upper Lung Lobe, Open Approach (ICD-10-PCS; 2017-12-21)
PROC: 0W9B00Z Drainage of Left Pleural Cavity with Drainage Device, Open Approach (ICD-10-PCS; 2017-12-21)
PROC: 0BJL4ZZ Inspection of Left Lung, Percutaneous Endoscopic Approach (ICD-10-PCS; 2017-12-21)
PROC: 0WJ Anatomical Regions, General, Inspection (ICD-10-PCS; 2017-12-21)
DX: J86.9 Pyothorax without fistula (principal); K22.3 Perforation of esophagus; J18.9 Pneumonia, unspecified organism; J98.51 Mediastinitis; J90 Pleural effusion, not elsewhere classified; J94.8 Other specified pleural conditions; F10.10 Alcohol abuse, uncomplicated; F17.210 Nicotine dependence, cigarettes, uncomplicated; J98.2 Interstitial emphysema; R09.02 Hypoxemia; R79.89 Other specified abnormal findings of blood chemistry; Z79.899 Other long term (current) drug therapy
CPT/HCPCS: 32557; 32561; 96361; 96374; 96375; 96376; 99291; 99292; Z7506; 36415; 36600; 71045; 71046; 71260; 71270; 71275; 74177; 74220; 80053; 80202; 82150; 82803; 82948; 83605; 83615; 83735; 84100; 84132; 84134; 84145; 84155; 84157; 85018; 85025; 85610; 85730; 86885; 86900; 86901; 86920; 87040; 87070; 87077; 87186; 89051; 93005; 94002; 94003; 94640; 94668; 94760; 97110; 97116; 97161; 97164; 97530; A4315; A4333; A4357; A4421; A6209; A6212; A6213; A6223; A6250; A6251; A6255; A6257; A6258; A6402; A6449; A7000; A7048; A7526; A9270; B4087; C1729; C1758; C1769; C9113; C9250; J0690; J0696; J1170; J1580; J1644; J1650; J1885; J1940; J2001; J2250; J2270; J2360; J2405; J2543; J2704; J2765; J2997; J3010; J3370; J3411; J3490; J7030; J7040; J7060; J7120; P9045; Q0163; Q9963; Q9967

== ENCOUNTER 2018-01-19 14:41 | Emergency (ER) | payer OTHER ==
[~2018-01-19] VITALS: Ht 190.5 cm; Wt 93.5 kg
[~2018-01-19 14:41] MED LIST: ASPI81TA52 PO; HYDR-4353 PO
[2018-01-19 15:21] LABS: HEMOGLOBIN 14.3 g/dl (14.0-17.9); MEAN CORPUSCULAR VOLUME 90.4 FL (78-98); RED BLOOD COUNT 4.75 X10'6 (4.70-6.10); WHITE BLOOD COUNT 9.4 X10'3 (4.5-11.0)
[2018-01-19 15:22] LABS: BASOPHILS % (AUTO) 0.2 % (0-1); EOSINOPHILS % (AUTO) 0.1 % (0-6); LYMPHOCYTES # (AUTO) 0.6 X10'3 (1.1-4.8); LYMPHOCYTES % (AUTO) 6.8 % (21-51); MEAN CORPUSCULAR HGB CONC 33.2 % (33.0-36.5); MEAN PLATELET VOLUME 7.3 FL (7.4-10.4); MONOCYTES # (AUTO) 0.4 X10'3 (0-0.9); MONOCYTES % (AUTO) 4.2 % (2-12); NEUTROPHILS # (AUTO) 8.4 X10'3 (1.8-7.7); NEUTROPHILS % (AUTO) 88.7 % (42-75); PLATELET COUNT 395 X10'3 (140-440); RED CELL DISTRIBUTION WIDTH 13.7 % (11.5-14.5)
[2018-01-19 15:25] LABS: PROTHROMBIN TIME 10.2 SECONDS (9.0-12.0)
[2018-01-19 15:31] LABS: ALANINE AMINOTRANSFERASE 38 U/L (12-78); ALBUMIN 3.8 G/DL (3.4-5.0); ALBUMIN/GLOBULIN RATIO 0.7 (1.1-1.5); ALKALINE PHOSPHATASE 88 IU/L (46-116); ANION GAP 12 (8-16); ASPARTATE AMINO TRANSFERASE 23 U/L (10-37); BILIRUBIN,TOTAL 0.8 MG/DL (0.1-1.0); BLOOD UREA NITROGEN 15 MG/DL (7-18); BUN/CREATININE RATIO 13.6 (5.4-32.0); CALCIUM 9.9 MG/DL (8.5-10.1); CHLORIDE 100 MMOL/L (99-107); GLUCOSE 129 MG/DL (70-104); SODIUM 138 MMOL/L (135-145); TOTAL PROTEIN 9.4 G/DL (6.4-8.2); eGFR 76 ML/MIN
[2018-01-19 16:22] LABS: CLARITY,URINE CLEAR (Clear); COLOR,URINE YELLOW (Yellow); GLUCOSE, URINE NEGATIVE (Neg); KETONES,URINE TRACE mg/dl (Neg); LEUKOCYTE ESTERASE ,URINE NEGATIVE (Neg); NITRITES, URINE NEGATIVE (Neg); OCCULT BLOOD,URINE NEGATIVE (Neg); PH,URINE 5.5 (4.8-8.0); PROTEIN,URINE NEGATIVE (Neg); UROBILINOGEN,URINE 0.2 E.U/dL (0.2-1.0)
[2018-01-19 16:31] LABS: UA COLLECTION TYPE URINAL
[2018-01-19] MEDS ORDERED: ondansetron/PF 4mg/2ml inj IV ONE ×2 (18:00→20:40)
[2018-01-19] MEDS ORDERED: normal saline 1000ML IV soln IVB ONE (18:00)
[2018-01-19] MEDS ORDERED: normal saline 1000ml 1,000 ML IV ONE (19:15)
[2018-01-19] MEDS ORDERED: ONDA8TAB9 PO (20:38)
[2018-01-19 21:01] VITALS: BP 106/65
[2018-01-23 08:55] LABS: OCCULT BLOOD STOOL POSITIVE (Neg)
== END 2018-01-19 21:06 | disposition home or self-care (01) ==
LOC: ER 14:42
DX: R10.84 Generalized abdominal pain (principal); K92.1 Melena; R11.0 Nausea; Z98.890 Other specified postprocedural states; Z79.82 Long term (current) use of aspirin
CPT/HCPCS: 36415; 80053; 81003; 82272; 85025; 85610; 96361; 96374; 96376; 99284; J2405; J7030

== ENCOUNTER 2020-06-17 08:57 | Outpatient (CLI) | payer OTHER, SELFPAY ==
[~2020-06-17 08:57] MED LIST changes: -HYDR-4353 PO; +ONDA8TAB9 PO
== END 2020-06-17 23:59 | disposition home or self-care (01) ==
LOC: 64 CT 08:57
PROVIDERS: ATTEND Surgery
DX: K43.9 Ventral hernia without obstruction or gangrene (principal); J98.4 Other disorders of lung
CPT/HCPCS: 74176

== ENCOUNTER 2020-06-23 11:12 | Outpatient (CLI) | payer OTHER ==
[~2020-06-23] VITALS: Ht 190.5 cm; Wt 117.9 kg
[2020-06-23 12:15] LABS: BASOPHILS % (AUTO) 0.7 % (0-1); EOSINOPHILS # (AUTO) 0.2 X10'3 (0-0.9); EOSINOPHILS % (AUTO) 2.8 % (0-6); LYMPHOCYTES # (AUTO) 2.5 X10'3 (1.1-4.8); MEAN CORPUSCULAR HEMOGLOBIN 29.6 PG (27.0-31.0); MEAN CORPUSCULAR HGB CONC 33.1 g/dL (33.0-36.5); MEAN CORPUSCULAR VOLUME 89.2 FL (78-98); MEAN PLATELET VOLUME 6.8 FL (7.4-10.4); MONOCYTES # (AUTO) 0.5 X10'3 (0-0.9); MONOCYTES % (AUTO) 6.3 % (2-12); NEUTROPHILS # (AUTO) 4.1 X10'3 (1.8-7.7); NEUTROPHILS % (AUTO) 56.2 % (42-75); PRE OP HEMATOCRIT 42.8 % (42.0-52.0); PRE OP HEMOGLOBIN 14.2 g/dL (14.0-17.9); PRE OP PLATELET COUNT 340 X10'3 (140-440); RED CELL DISTRIBUTION WIDTH 13.4 % (11.5-14.5)
[2020-06-23] MEDS ORDERED: NO HOME MEDS (12:26)
[2020-06-30] MEDS ORDERED: ringers solution, lacted 1,000 ML IV SCH (05:30)
[2020-06-30] MEDS ORDERED: ceFAZolin 2gm in dextrose, iso 50 ML IV ONE (05:30)
[2020-06-30] MEDS ORDERED: famotidine 20mg tablet PO ONE (05:30)
== END 2020-06-23 23:59 | disposition home or self-care (01) ==
LOC: PRE-OP 11:12 → EDSTATUS 06-30 11:15
PROVIDERS: ATTEND Surgery
DX: Z01.812 Encounter for preprocedural laboratory examination (principal); Z20.822 Contact with and (suspected) exposure to COVID-19
CPT/HCPCS: 36415; 85025; 87635; J7120